=== PATIENT | female | born 1940 | race Caucasian/White ===

== ENCOUNTER 2017-09-30 00:25 | Inpatient (IN) | payer OTHER ==
[~2017-09-30] VITALS: Ht 157.5 cm; Wt 98.0 kg
[~2017-09-30 00:25] MED LIST: ASPIRIN81 M4 PO; CIPRO500 M1 PO; COUMADIN5 M2 PO; DILAUDID2 M1 PO; GLIMEPIRIDE4 M1 PO; HUMIRA PEN40 MG/0.8 SC; LEVOTHYROXINE88 MCG PO; LISINOPRIL20 M1 PO; METFORMIN HCL500 M3 PO; METHOTREXATE2.5 M2 PO; METOPROLOL SUC100 M2 PO; MIRALAX119 GM PO; SENNA PLUS TAB1 EACH PO; SIMVASTATIN TAB 40M PO; TRAMADOL HCL50 M1 PO
--- NOTE | 2017-09-30 01:19 | ED GENERAL ADULT ---
See Addendum History of Present Illness General Chief Complaint: General Adult Stated Complaint: "COUPLE OF DAYS DONT FEEL WELL" Source: patient, family Exam Limitations: no limitations Vital Signs & Intake/Output Vital Signs & Intake/Output Vital Signs Date Time Temp Pulse Resp B/P B/P Pulse O2 O2 Flow FiO2 Mean Ox Delivery Rate 09/30 1050 99.6 91 18 98/56 98 Room Air 09/30 0900 101.3 09/30 0838 101.3 09/30 0824 101.0 116 18 142/65 100 Room Air 09/30 0302 96.7 98 18 122/67 98 Room Air 09/30 0242 100.7 09/30 0151 101.1 09/30 0049 101.1 96 20 138/76 95 Room Air Allergies Coded Allergies: codeine (HIVES, RASH 02/21/16) Triage Note: 77YO FEMALE TO TRIAGE W/CO N,V, X 1 WEEK. STATES SHE "FELL TONITE BECAUSE SHE FELT WEAK" Triage Nurses Notes Reviewed? yes Onset: Abrupt Duration: day(s): (2) Timing: multiple episodes today Injury Environment: home Severity: mild, moderate No Modifying Factors: none HPI: This is a 77-year-old female who presents to the ER with a family member for chief complaint of weakness, fall, fever. She has not been feeling well since . Should multiple episodes of emesis today. Tonight she was trying to get out of her wheelchair to use the bathroom felt unsteady and fell down and hurt her bottom. She also complains of right upper quadrant abdominal pain. No diarrhea. (Tara ARAUJO,Mitzi) Reconcile Medications Aspirin (Aspirin*) 81 MG TAB.CHEW 1 TAB PO DAILY HEART HEALTH (Reported) Reason to Stop at ADM: HOLDING BECAUSE SHE WILL GO FOR SURGERY Glimepiride 4 MG TABLET 1 TAB PO DAILY DM (Reported) Reason to Stop at ADM: ON NPO ISS Levothyroxine Sodium 88 MCG TABLET 1 TAB PO DAILY THYROID (Reported) Lisinopril 20 MG TABLET 1 TAB PO DAILY HTN (Reported) Metformin HCl 500 MG TABLET 1 TAB PO BID DM (Reported) Reason to Stop at ADM: ON NPO ISS Methotrexate 2.5 MG TABLET 6 TAB PO QW ARTHRITIS (Reported) Metoprolol Succinate 100 MG TAB.ER.24H 1 TAB PO DAILY HTN (Reported) last taken on 02/20/16 Polyethylene Glycol 3350 (Miralax) 119 GM POWDER 17 GM PO DAILY BOWEL REGIMENT Sennosides/Docusate Sodium (Senna Plus Tablet) 1 EACH TABLET 1 TAB PO DAILY PRN CONSTIPATION [SIMVASTATIN TAB 40M] 40 MG PO DAILY CHOL (Reported) (Jeromy Castro MD) Past History Travel History Traveled to [place] past 21 day No Medical History Any Pertinent Medical History? see below for history Neurological: NONE EENT: RIGHT EAR AKUTAN Cardiovascular: AFIB, HTN, CHOL Respiratory: NONE Gastrointestinal: irritable bowel syndrome Hepatic: NONE Renal: NONE Musculoskeletal: psoariatic arthritis, DISSOLVED THORACIC DISKS Psychiatric: NONE Endocrine: diabetes, THYROID NIDDM Cancer(s): R HIP/BONE MYELOMA History of MRSA: No History of VRE: No History of CDIFF: No Pneumonia Vaccine: 02/01/11 Surgical History Surgical History: N Psychosocial History Who do you live with Patient/Self Services at Home None What is your primary language Telugu Tobacco Use: Quit >30 days ago Family History Family History, If Any: BROTHER (melanoma with possible bone mets). FATHER (colon cancer). Hx Contributory? No (Mitzi Pacheco MD) Review of Systems Review of Systems Constitutional: Reports: chills, malaise, weakness. Denies: fever. EENTM: Reports: no symptoms. Respiratory: Reports: short of breath. Denies: cough, sputum production. Cardiovascular: Denies: chest pain, palpitations. GI: Reports: abdominal pain, diarrhea, melena, vomiting. Genitourinary: Denies: discharge, dysuria, frequency. Musculoskeletal: Denies: back pain. Skin: Reports: no symptoms. Neurological/Psychological: Reports: no symptoms. Hematologic/Endocrine: Reports: polyuria. Denies: bruising, bleeding, polydipsia. Immunologic/Allergic: Reports: no symptoms. All Other Systems: Reviewed and Negative (Mitzi Pacheco MD) Physical Exam Physical Exam General Appearance: well developed/nourished, alert, awake, anxious, mild distress, moderate distress Head: atraumatic, normal appearance Eyes: Bilateral: normal appearance, PERRL, EOMI. Ears, Nose, Throat: normal pharynx, hearing grossly normal Neck: normal inspection, supple, full range of motion Respiratory: normal breath sounds, chest non-tender, no respiratory distress Cardiovascular: regular rate/rhythm, normal peripheral pulses Peripheral Pulses: 2+ radial (R), 2+ radial (L) Gastrointestinal: normal bowel sounds, soft, tenderness (RUQ) Extremities: normal inspection, normal capillary refill, normal range of motion, no edema Neurologic/Psych: no motor/sensory deficits, awake, alert, oriented x 3 Skin: intact, normal color, warm/dry Core Measures ACS in differential dx? No CVA/TIA Diagnosis: No Sepsis Present: No Sepsis Focused Exam Completed? No (Tara ARAUJO,Mitzi) Progress Differential Diagnoses I considered the following diagnoses in my evaluation of the patient: [ CHOLECYSTITIS, INFLUENZA, UTI, PYELO, PNEUMONIA, SEPSIS, CLAUDIA, DEHYDRATION] Plan of Care: Orders Procedure Date/time Status Clear Liquid Diet 09/30 D Active Consistent Carbohydrate 1 09/30 B Complete Patient Data 09/30 1038 Active OXYGEN SETUP (GEN) 09/30 0835 Active Saline Lock 09/30 0835 Active Admit to inpatient 09/30 0835 Active Vital Signs 09/30 0835 Active Activity/Ambulation 09/30 0835 Active Code Status 09/30 0835 Active LACTIC ACID 09/30 0420 Complete MISTAKE 09/30 0133 Active Telemetry/Soil Chemist 09/30 0133 Active CULTURE,URINE 09/30 0120 Active BLOOD CULTURE 09/30 0120 Active URINALYSIS 09/30 0120 Complete TROPONIN LEVEL 09/30 0120 Complete PARTIAL THROMBOPLASTIN TIME 09/30 0120 Complete PROTHROMBIN TIME 09/30 0120 Complete LIPASE 09/30 0120 Complete LACTIC ACID 09/30 0120 Complete COMPREHENSIVE METABOLIC PANEL 09/30 0120 Complete CBC WITHOUT DIFFERENTIAL 09/30 0120 Complete EKG 09/30 0120 Active Intake & Output 09/30 0102 Active RAPID VIRAL INFLUENZA A 09/30 0052 Complete Laboratory Tests 09/30/17 0420: Lactic Acid 1.6 09/30/17 0415: Urine Color YEL, Urine Clarity CLEAR, Urine pH 6.0, Ur Specific [place] 1.010, Urine Protein 30 H, Urine Ketones NEG, Urine Nitrite NEG, Urine Bilirubin NEG, Urine Urobilinogen 0.2, Ur Leukocyte Esterase TRACE H, Ur Microscopic SEDIMENT EXAMINED, Urine RBC 10-15 H, Urine WBC 25-50 H, Ur Epithelial Cells FEW, Urine Bacteria PACKD H, Granular Casts 1-3 H, Urine Hemoglobin TRACE-INTACT, Urine Glucose NEG 09/30/17 0130: Anion Gap 18 H, Estimated GFR 37 L, BUN/Creatinine Ratio 12.1, Glucose 187 H, Lactic Acid 2.4 H, Calcium 9.4, Total Bilirubin 1.1, AST 31, ALT 27, Alkaline Phosphatase 75, Troponin I 0.02, Total Protein 7.2, Albumin 3.8, Globulin 3.4, Albumin/Globulin Ratio 1.1, Lipase 96, PT 13.6 H, INR 1.30 H, APTT 28, CBC w Diff MAN DIFF ORDERED, RBC 3.76 L, MCV 91.0, MCH 30.1, MCHC 33.1, RDW 16.8 H, MPV 8.5, Gran % 87.9 H, Lymphocytes % 6.7 L, Monocytes % 4.9, Eosinophils % 0.1, Basophils % 0.4, Absolute Granulocytes 6.1, Segmented Neutrophils 74, Band Neutrophils 11 H, Absolute Lymphocytes 0.5 L, Lymphocytes 8 L, Monocytes 4, Absolute Monocytes 0.3, Absolute Eosinophils 0, Basophils 3 H, Absolute Basophils 0, Platelet Estimate ADEQUATE, Polychromasia 1+, Poikilocytosis 1+, Anisocytosis 1+, Ovalocytes 1+ Microbiology 09/30 0415 URINE ROUT: Urine Culture - RECD 09/30 014 BLOOD: Blood Culture - RECD 09/30 013 BLOOD: Blood Culture - RECD 09/30 005 NASOPHARYN: Influenza Virus A & B Rapid Smear - COMP Diagnostic Imaging: Viewed by Me: Radiology Read, CT Scan. Discussed w/RAD: Radiology Read, CT Scan. Radiology Impression: PATIENT: FRANCINE GOMEZ PRESENT AGE: 77 PATIENT ACCOUNT NO: [id number] : 42 LOCATION: [facility] ORDERING PHYSICIAN: Mitzi Pacheco MD SERVICE DATE: 09/30/17 EXAM TYPE: CAT - CT ABD & PELVIS W/O IV CONTRAS EXAMINATION: CT ABDOMEN AND PELVIS WITHOUT CONTRAST CLINICAL INFORMATION: Right upper quadrant pain, fever, vomiting. COMPARISON: Ultrasound from 06/12/2017. TECHNIQUE: Multidetector volumetric imaging was performed from the superior aspect of the liver through the pubic symphysis. Sagittal and coronal reformatted images were obtained on the technologist's workstation. DLP: 1157 mGy-cm FINDINGS: A portion of the right abdomen is not included on this study due to the patient's size and [id number] of the examination. LUNG BASES: There is a 0.4 cm right middle lobe pulmonary nodule, series 2 image 6. The visualized cardiac structures are unremarkable. LIVER, GALLBLADDER, AND BILIARY TREE: The visualized liver is normal in size, shape, and attenuation. No focal hepatic lesion or biliary ductal dilatation is present. The gallbladder is unremarkable with no evidence of radiopaque gallstones, gallbladder wall thickening, or obvious pericholecystic inflammatory changes. PANCREAS: Unremarkable. SPLEEN: Unremarkable. ADRENAL GLANDS: Unremarkable. KIDNEYS AND URETERS: The kidneys are normal in size, shape, and attenuation. No hydronephrosis, hydroureter, or calculi seen. Mild symmetric perinephric stranding. BLADDER: Unremarkable. GASTROINTESTINAL TRACT: The stomach is decompressed, grossly unremarkable. The small bowel is normal in caliber without obstruction. Normal appendix. No colonic wall thickening or inflammatory changes are seen. Mild colonic stool burden. No free air or free fluid. ABDOMINAL WALL: No significant hernia is appreciated. The right abdominal wall is not fully included on this study. LYMPH NODES: Normal. VASCULAR: Normal caliber aorta with mild atherosclerotic calcifications. PELVIC VISCERA: The uterus and adnexa are unremarkable. OSSEOUS STRUCTURES: No acute or suspicious osseous abnormality. Multilevel degenerative changes of the spine. These are most significant at the L3-L4 level with disc space narrowing, vacuum disc phenomenon, and prominent endplate sclerosis with osteophyte formation. Hardware seen in the proximal right femur. Sclerosis noted at the superior portion of the right femoral head is nonspecific but could be associated with avascular necrosis. IMPRESSION: 1. No acute finding of the abdomen or pelvis. Unremarkable appearance of the gallbladder. Normal appendix. 2. 0.4 cm right middle lobe pulmonary nodule. If this is a high-risk patient, 12 month follow-up chest CT could be considered. DICTATED BY: Naga Fitch MD DATE/TIME DICTATED:09/30/17303 VETERINARY TECHNICIAN ASSISTANT:MICHEL DATE/TIME TRANSCRIBED:303 CONFIDENTIAL, DO NOT COPY WITHOUT APPROPRIATE AUTHORIZATION. < Electronically signed in Other Vendor System> SIGNED BY: Naga Fitch MD 09/30/17311 CXR Impression: PATIENT: FRANCINE GOMEZ PRESENT AGE: 77 PATIENT ACCOUNT NO: [id number] : 42 LOCATION: [facility] ORDERING PHYSICIAN: Mitzi Pacheco MD SERVICE DATE: 09/30/17 EXAM TYPE: RAD - XRY-PORTABLE CHEST XRAY EXAMINATION: XR PORTABLE CHEST CLINICAL INFORMATION: Fever and abdominal pain COMPARISON: 02/21/2016 TECHNIQUE: Portable frontal view of the chest was obtained. FINDINGS: Lung volumes are low. The patient is rotated to the right. No dense consolidation, edema, or effusion. No pneumothorax. The cardiomediastinal silhouette is grossly unchanged. No acute osseous abnormality. IMPRESSION: Hypoexpanded lungs with no focal consolidation. DICTATED BY: Naga Fitch MD DATE/TIME DICTATED:09/30/17526 VETERINARY TECHNICIAN ASSISTANT: MICHEL DATE/TIME TRANSCRIBED:09/30/17526 CONFIDENTIAL, DO NOT COPY WITHOUT APPROPRIATE AUTHORIZATION. <Electronically signed in Other Vendor System> SIGNED BY: Naga Fitch MD 09/30/17530 Initial ED EKG: AFIB, ST depression (V1-V2) Hand-Off Endorsed To: Jeromy Castro MD Endorsed Time: 715 Pending: other (TOLERATING PO, AMBULATION) (Mitzi Pacheco MD) Comments: Patient collapsed in department attempting to reach for bucket to vomit in. She did not sustain any injury. (Jeromy Castro MD) Departure Departure Disposition: STILL A PATIENT Condition: Stable Referrals: [facility] Roberth ARAUJO (PCP/Family) Departure Forms: Customer Survey General Discharge Information (Mitzi Pacheco MD) Departure Clinical Impression Primary Impression: Sepsis secondary to UTI Secondary Impressions: Abdominal pain, Fever Admission Note Spoke With: Kayla Mccormick MD Documentation of Exam: Documentation of any treatments & extenuating circumstances including Concerns Regarding Discharge (functional status, medication knowledge or non-compliance, living conditions, etc.) that warrant an admission rather than observation: IV fluids IV antiemetics serial lab exam medication adjustment continuing care discharge planning (Jeromy Castro MD) Critical Care Note Critical Care Note Critical Care Time: non-applicable (Mitzi Pacheco MD) Critical Care Note Critical Care Time: 30-74 min (40) (Jeromy Castro MD)
[2017-09-30 02:00] LABS: ABSOLUTE BASOPHIL COUNT 0 /CUMM (0.0-0.2); ABSOLUTE EOSINOPHIL COUNT 0 /CUMM (0.0-0.7); ABSOLUTE GRANULOCYTE CT 6.1 /CUMM (1.4-6.5); ABSOLUTE LYMPH COUNT 0.5 /CUMM (1.2-3.4); ABSOLUTE MONOCYTE COUNT 0.3 /CUMM (0.10-0.60); BASOPHIL % 0.4 % (0.0-2.0); EOSINOPHIL % 0.1 % (0-5); GRANULOCYTE % 87.9 % (42.2-75.2); HEMATOCRIT 34.2 % (37-47); MEAN CORPUSCULAR HGB 30.1 PG (27.0-31.0); MEAN CORPUSCULAR HGB CONC 33.1 G/DL (33.0-37.0); MEAN PLATELET VOLUME 8.5 FL (7.4-10.4); PLATELET COUNT 171 /CUMM (130-400); RBC DISTRIBUTION WIDTH 16.8 % (11.5-14.5); RED BLOOD CELL CT 3.76 /CUMM (4.20-5.40); WHITE BLOOD CELL COUNT 6.9 /CUMM (4.8-10.8)
[2017-09-30 02:05] LABS: PT 13.6 SEC (9.4-12.5); PTT 28 SEC (25-37)
--- NOTE | 2017-09-30 03:12 | CT SCAN REPORT ---
EXAMINATION: CT ABDOMEN AND PELVIS WITHOUT CONTRAST CLINICAL INFORMATION: Right upper quadrant pain, fever, vomiting. COMPARISON: Ultrasound from 06/12/2017. TECHNIQUE: Multidetector volumetric imaging was performed from the superior aspect of the liver through the pubic symphysis. Sagittal and coronal reformatted images were obtained on the technologist's workstation. DLP: 1157 mGy-cm FINDINGS: A portion of the right abdomen is not included on this study due to the patient's size and [id number] of the examination. LUNG BASES: There is a 0.4 cm right middle lobe pulmonary nodule, series 2 image 6. The visualized cardiac structures are unremarkable. LIVER, GALLBLADDER, AND BILIARY TREE: The visualized liver is normal in size, shape, and attenuation. No focal hepatic lesion or biliary ductal dilatation is present. The gallbladder is unremarkable with no evidence of radiopaque gallstones, gallbladder wall thickening, or obvious pericholecystic inflammatory changes. PANCREAS: Unremarkable. SPLEEN: Unremarkable. ADRENAL GLANDS: Unremarkable. KIDNEYS AND URETERS: The kidneys are normal in size, shape, and attenuation. No hydronephrosis, hydroureter, or calculi seen. Mild symmetric perinephric stranding. BLADDER: Unremarkable. GASTROINTESTINAL TRACT: The stomach is decompressed, grossly unremarkable. The small bowel is normal in caliber without obstruction. Normal appendix. No colonic wall thickening or inflammatory changes are seen. Mild colonic stool burden. No free air or free fluid. ABDOMINAL WALL: No significant hernia is appreciated. The right abdominal wall is not fully included on this study. LYMPH NODES: Normal. VASCULAR: Normal caliber aorta with mild atherosclerotic calcifications. PELVIC VISCERA: The uterus and adnexa are unremarkable. OSSEOUS STRUCTURES: No acute or suspicious osseous abnormality. Multilevel degenerative changes of the spine. These are most significant at the L3-L4 level with disc space narrowing, vacuum disc phenomenon, and prominent endplate sclerosis with osteophyte formation. Hardware seen in the proximal right femur. Sclerosis noted at the superior portion of the right femoral head is nonspecific but could be associated with avascular necrosis. IMPRESSION: 1. No acute finding of the abdomen or pelvis. Unremarkable appearance of the gallbladder. Normal appendix. 2. 0.4 cm right middle lobe pulmonary nodule. If this is a high-risk patient, 12 month follow-up chest CT could be considered.
--- NOTE | 2017-09-30 05:31 | RADIOLOGY REPORT ---
EXAMINATION: XR PORTABLE CHEST CLINICAL INFORMATION: Fever and abdominal pain COMPARISON: 02/21/2016 TECHNIQUE: Portable frontal view of the chest was obtained. FINDINGS: Lung volumes are low. The patient is rotated to the right. No dense consolidation, edema, or effusion. No pneumothorax. The cardiomediastinal silhouette is grossly unchanged. No acute osseous abnormality. IMPRESSION: Hypoexpanded lungs with no focal consolidation.
--- NOTE | 2017-09-30 11:56 | History & Physical ---
Hamilton Sesaykylee 09/30/17 1156: General Information and HPI MD Statement: I have seen and personally examined FRANCINE GOMEZ and documented this H&P. The patient is a 77 year old F who presented with a patient stated chief complaint of [weakness, vomiting, nausea]. Source of Information: patient, old records Exam Limitations: no limitations History of Present Illness: This is a 77-year-old female with past medical history of atrial fibrillation, hypertension, hypercholesterolemia, irritable bowel syndrome, psoriatic arthritis on methotrexate, diabetes mellitus (hek-[id number]-[id number] diabetes mellitus), hypothyroidism, smoldering myeloma came in with chief complaint of not feeling well since 5 days prior to admission. Apparently,the patient was doing fine when 5 days prior to today's presentation on , she felt like she was not herself and vomited everything that she had eaten, after that she was not able to tolerate anything by mouth, continued to throw up if she ate anything, lost her appetite, continued to feel weak and nauseous. Today morning, she was trying to picker feeder something from the ground when she felt very weak and had to take support on the ground in order to balance herself. Similar episode happened while in the ER. She denied any loss of consciousness, palpitations, dizziness and reinforced that every time she felt like sitting on the ground is because of weakness. She does recall that her urinary frequency has reduced relatively in last few days. She denied any headache, diarrhea or constipation, palpitations, chest pain, abdominal pain. However, she said that she did have some subjective fevers. She hasn't had much of an appetite for last 5 days and hasn't eaten much. Allergies/Medications Allergies: Coded Allergies: codeine (HIVES, RASH 02/21/16) Home Med list Aspirin (Aspirin*) 81 MG TAB.CHEW 1 TAB PO DAILY HEART HEALTH (Reported) Reason to Stop at ADM: HOLDING BECAUSE SHE WILL GO FOR SURGERY Glimepiride 4 MG TABLET 1 TAB PO DAILY DM (Reported) Reason to Stop at ADM: ON NPO ISS Levothyroxine Sodium 88 MCG TABLET 1 TAB PO DAILY THYROID (Reported) Lisinopril 20 MG TABLET 1 TAB PO DAILY HTN (Reported) Metformin HCl 500 MG TABLET 1 TAB PO BID DM (Reported) Reason to Stop at ADM: ON NPO ISS Methotrexate 2.5 MG TABLET 6 TAB PO QW ARTHRITIS (Reported) Metoprolol Succinate 100 MG TAB.ER.24H 1 TAB PO DAILY HTN (Reported) last taken on 02/20/16 Polyethylene Glycol 3350 (Miralax) 119 GM POWDER 17 GM PO DAILY BOWEL REGIMENT Sennosides/Docusate Sodium (Senna Plus Tablet) 1 EACH TABLET 1 TAB PO DAILY PRN CONSTIPATION [SIMVASTATIN TAB 40M] 40 MG PO DAILY CHOL (Reported) Compliance With Home Meds: FAIR Past History Travel History Traveled to [place] past 21 day No Medical History Neurological: NONE EENT: RIGHT EAR [place] Cardiovascular: AFIB, HTN, CHOL Respiratory: NONE Gastrointestinal: irritable bowel syndrome Hepatic: NONE Renal: NONE Musculoskeletal: psoariatic arthritis, DISSOLVED THORACIC DISKS Psychiatric: NONE Endocrine: diabetes, THYROID NIDDM Cancer(s): R HIP/BONE MYELOMA History of MRSA: No History of VRE: No History of CDIFF: No Pneumonia Vaccine: 02/01/11 Surgical History Surgical History: N Past Family/Social History Family History Relations & Conditions if any BROTHER (melanoma with possible bone mets). FATHER (colon cancer). Psychosocial History Where do you live? Home Who Do You Live With? nephew Services at Home: None Smoking Status: Never Smoked ETOH Use: occasional use Illicit Drug Use: denies illicit drug use Functional Ability ADLs Independent: dressing, eating, toileting, bathing. Ambulation: cane Review of Systems Review of Systems Constitutional: Reports: fever, malaise, weakness. Denies: chills, diaphoresis. EENTM: Denies: blurred vision, double vision, visual changes, eye pain. Cardiovascular: Denies: chest pain, edema, orthopena, palpitations. Respiratory: Denies: cough, hemoptysis, orthopnea, short of breath, sputum production. GI: Denies: abdominal pain, bloating, constipation, diarrhea. Genitourinary: Reports: frequency. Denies: discharge, dysuria, hematuria, hesitation, nocturia , pain. Musculoskeletal: Reports: joint pain, joint swelling. Denies: back pain, gout, muscle pain, muscle stiffness. Skin: Reports: no symptoms. Neurological/Psychological: Reports: no symptoms. Hematologic/Endocrine: Reports: no symptoms. Exam & Diagnostic Data Last 24 Hrs of Vital Signs/I&O Vital Signs Date Time Temp Pulse Resp B/P B/P Pulse O2 O2 Flow FiO2 Mean Ox Delivery Rate 09/30 1443 98.3 88 22 103/52 09/30 1439 98.3 88 22 103/52 97 Room Air 09/30 1050 99.6 91 18 98/56 98 Room Air 09/30 0900 101.3 09/30 0838 101.3 09/30 0824 101.0 116 18 142/65 100 Room Air 09/30 0302 96.7 98 18 122/67 98 Room Air 09/30 0242 100.7 09/30 0151 101.1 09/30 0049 101.1 96 20 138/76 95 Room Air Intake & Output 09/30 1600 09/30 0800 09/30 0000 Intake Total 3000 Output Total Balance 3000 Intake, IV 3000 Patient 97.976 kg 97.976 kg Weight Physical Exam General Appearance Alert, Oriented X3, Cooperative, No Acute Distress Skin No Rashes, No Breakdown, No Significant Lesion HEENT Atraumatic, PERRLA, EOMI Neck Supple, No JVD, No thryomegaly Cardiovascular Normal S1, Normal S2, irregularly irregular Lungs Clear to Auscultation, Normal Air Movement Abdomen Normal Bowel Sounds, Soft, No Tenderness Neurological Strength at 5/5 X4 Ext, Normal Tone, Sensation Intact Extremities No Clubbing, No Cyanosis, No Edema, Normal Pulses Vascular Normal Pulses Last 24 Hrs of Labs/Noam: Laboratory Tests 09/30/17 0420: Lactic Acid 1.6 09/30/17 0415: Urine Color YEL, Urine Clarity CLEAR, Urine pH 6.0, Ur Specific [place] 1.010, Urine Protein 30 H, Urine Ketones NEG, Urine Nitrite NEG, Urine Bilirubin NEG, Urine Urobilinogen 0.2, Ur Leukocyte Esterase TRACE H, Ur Microscopic SEDIMENT EXAMINED, Urine RBC 10-15 H, Urine WBC 25-50 H, Ur Epithelial Cells FEW, Urine Bacteria PACKD H, Granular Casts 1-3 H, Urine Hemoglobin TRACE-INTACT, Urine Glucose NEG 09/30/17 0130: Anion Gap 18 H, Estimated GFR 37 L, BUN/Creatinine Ratio 12.1, Glucose 187 H, Lactic Acid 2.4 H, Calcium 9.4, Total Bilirubin 1.1, AST 31, ALT 27, Alkaline Phosphatase 75, Troponin I 0.02, Total Protein 7.2, Albumin 3.8, Globulin 3.4, Albumin/Globulin Ratio 1.1, Lipase 96, TSH 1.240, Free T4 1.52, PT 13.6 H, INR 1.30 H, APTT 28, CBC w Diff MAN DIFF ORDERED, RBC 3.76 L, MCV 91.0, MCH 30.1, MCHC 33.1, RDW 16.8 H, MPV 8.5, Gran % 87.9 H, Lymphocytes % 6.7 L, Monocytes % 4.9, Eosinophils % 0.1, Basophils % 0.4, Absolute Granulocytes 6.1, Segmented Neutrophils 74, Band Neutrophils 11 H, Absolute Lymphocytes 0.5 L, Lymphocytes 8 L, Monocytes 4, Absolute Monocytes 0.3, Absolute Eosinophils 0, Basophils 3 H, Absolute Basophils 0, Platelet Estimate ADEQUATE, Polychromasia 1+, Poikilocytosis 1+, Anisocytosis 1+, Ovalocytes 1+ Microbiology 09/30 1359 URINE ROUT: Urine Culture - CAN Cancelled: Cancelled via OE: Error 09/30 1359 BLOOD: Blood Culture - ORD 09/30 1359 BLOOD: Blood Culture - ORD 09/30 0415 URINE ROUT: Urine Culture - RECD 09/30 0143 BLOOD: Blood Culture - RECD 09/30 0130 BLOOD: Blood Culture - RECD 09/30 0053 NASOPHARYN: Influenza Virus A & B Rapid Smear - COMP Diagnostic Data EKG Results Irregularly irregular, possible atrial flutter as P waves are seen clearly, rate of 106, QRS of 116, QTC of 473, incomplete right bundle branch block and left anterior fascicular block which is present on the previous EKG CXR Results hypoexpanded lungs with no focal consolidation Other Results SERVICE DATE: 09/30/17 EXAM TYPE: CAT - CT ABD & PELVIS W/O IV CONTRAS CT abdominal and pelvis did not show any acute abdominal or pelvic findings, unremarkable gallbladder, 0.4 cm right middle lobe pulmonary nodule, needs follow-up in 12 months Assessment/Plan Assessment: In summary this is a 77-year-old female with past medical history of chronic atrial fibrillation (on aspirin for anticoagulation), hypertension( on lisinopril and metoprolol), hypercholesterolemia( on statin), irritable bowel syndrome, psoriatic arthritis on methotrexate, diabetes mellitus (non-insulin- dependent diabetes mellitus), hypothyroidism, smoldering myeloma came in with chief complain of not feeling well since 5 days prior to admission. She came in with chief complain of weakness, fall and fever with continued episodes of emesis and not being able to keep anything inside, loss of appetite, decrease frequency of urination, generalized weakness, and forwarded secondary to the weakness since last 5 days. At baseline, she lives with her nephew who lives on the first floor, she does not drive however she does her own activities of daily living, uses public transit, shops for herself, walks with a cane walker and has also has a wheelchair, she cooks for herself, and gets help from nephew for things here and there. On admission she had a MAXIMUM TEMPERATURE of 101.3, tachycardia with average heart rate ranging from 96 upto 116, left pressure of 98/56, respiratory rate o 18-22, she was 98% saturating on room air. white Count of 6.9, H/H of 11.3/34.2, MCV of 91.0, platelet of 171, 11 bands. Sodium of 136, potassium of 4.3, chloride of 97, anion gap of 18, BUN/creatinine 17/1.4, glucose of 187 minus lactic acid was elevated at 2.4 however subsequent lactic acid came down to 1.6, liver function tests within normal limits, calcium of 9.4. Bone and was found to be negative at 0.020, lipase was 96 TSH was 1.24 and free T4 venous 1.52, the normal limit. Urine analysis was found to be clear, however trace leukocyte esterase, 25-50 RBCs, few epithelial cells and 1-3 granular casts were found him a urine protein was found to be 30. Urine cultures and blood cultures were sent. Chest x-ray did not show any acute consolidation, abdominal and pelvis CT not showing any acute abdominal findings, a 0.4 cm right middle lobe pulmonary nodule was found which needs to be followed up in a year from now. In the ER she received 2 L of normal saline bolus, she received Zofran, Tylenol, one dose of IV ceftriaxone. We will admit the patient to general medicine floor for the treatment of following problems. Sepsis secondary to urinary tract infection. * Continue to monitor vitals every shift, continue to monitor intake and output, continue to follow urine culture, patient received 1 dose of IV ceftriaxone, continue IV ceftriaxone to treat urinary tract infection for now. * Chest x-ray was found to be normal and her initial complain of right upper quadrant pain and le lead us to perform a CT abdominal and pelvis which also did not show any acute findings, liver function tests are within normal limit. * Initial lactic acid was elevated, however after receiving normal saline, her subsequent lactic acid came down, her sepsis seems to be most likely secondary to urinary tract infection as the UA was found to be positive with white blood cells. * Continue IV antibiotics, continue to follow urine culture, adjust antibiotics as needed. Nausea/vomiting/anorexia * Zofran when necessary ordered for nausea/vomiting. * Start her on full liquid diet for now as she has not been tolerating by mouth diet well, advance the diet as tolerated. * If she requires more than couple of doses of Zofran pleasecheck EKG to monitor QTC. History of [id number] diabetes mellitus * At home patient is on metformin and glimepiride at home which we will hold while inpatient. * Continue to monitor fingerstick. * Continue low-dose NovoLog sliding scale * Adjust the sliding scale depending on the fingerstick values. * Continue consistent carbohydrate diet, full liquid diet ordered for now as the patient is unable to tolerate by mouth diet, advance as tolerated. * As outpatient patient follows Dr. mireles as his diabetes doctor. History of hypothyroidism * Ms chacon presented in atrial flutter, therefore thyroid values very checked which were found to be within normal limits. * Continue levothyroxine at home dosage. History of chronic atrial fibrillation * Patient has known atrial fibrillation for many years now, follows up with Dr. Abarca as his planning rn, patient isn't hypertensive, diabetic, ages 77 however patient was not placed on chronic anticoagulation even though the Chadsvasc seems to be high, however she is maintained on 81 mg of aspirin * IF Need be this can be clarified with his planning rn * As she was hypotensive on presentation which could be secondary to her sepsis, we will hold metoprolol and lisinopril for now, restart as needed and the blood pressure allows. History of hypertension * On Presentation, she was found to be hypotensive. * Hold all antihypertensive medications for now * continue to monitor blood pressure * Restart as the blood pressure allows. History of psoriatic athritis * follows with DR michael as OP. * will hold methotraxate for now. Full code. Consistent carbohydrate diet. DVT prophylaxis with heparin. As Ranked By This Provider Problem List: 1. UTI (urinary tract infection) 2. Renal failure 3. Psoriatic arthritis 4. Diabetes 5. Sepsis secondary to UTI Core Measures/Misc (05/20) Acute Coronary Syndrome ACS Diagnosis: No Congestive Heart Failure Congestive Heart Failure Diagnosis No Cerebrovascular Accident CVA/TIA Diagnosis: No VTE (View Protocol) VTE Risk Factors Acute Medical Illness No Mechanical VTE Prophylaxis d/t Other No VTE Pharm Prophylaxis d/t Other Sepsis (View protocol) Sepsis Present: Yes Resident Review Statement Resident Statement: admitted by resident Kayla Mccormick 09/30/17 1808: Attending MD Review Statement Attending Statement Attending MD Statement: examined this patient, discuss w/resident/PA/ONLINE PRODUCER, agreed w/resident/PA/ONLINE PRODUCER, reviewed EMR data (avail) Attending Assessment/Plan: 77-yr F with PMH of Afib, HTN , HLD, irritable bowel syndrome, psoriatic arthritis on methotrexate( was on Humira in past which was stopped when she was diagnosed with Smoldering MM), diabetes mellitus , hypothyroidism, 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 On baseline pt has limited mobility due to her rt leg fracture and walks few steps with walker and also uses wheelchair. On admission she was found to have fever in ER with tachycardia, bandemia, lactic acidosis and postive UA. Pt is being admitted for sepsis secondary to UTI- cont on ceftriaxone, f/u on blood and urine cultures and will cont with iv fluids. d/w pt the care plan.
[2017-10-01 06:00] VITALS: BP 99/53
--- NOTE | 2017-10-01 07:29 | PN- Housestaff ---
Charlie ARAUJO,Shaina 10/01/17 0729: Subjective Follow-up For: uti diabetes afib? nausea and vomiting fall increased troponins Subjective: patient seen this morning. notes that she is having episodes of dizziness while laying stationary in bed. also notes a dry cough that started this morning. denies n/v. her increased urination that she was having at home has now decreased even though on fluids. notes so RUQ pain on palpation. Review of Systems Constitutional: Reports: malaise, weakness. EENTM: Reports: no symptoms. Cardiovascular: Reports: no symptoms. Respiratory: Reports: no symptoms, cough. Gastrointestinal: Reports: abdominal pain. Musculoskeletal: Reports: no symptoms. Neurological/Psychological: Reports: weakness, other (dizziness). Objective Last 24 Hrs of Vital Signs/I&O Vital Signs Date Time Temp Pulse Resp B/P B/P Pulse O2 O2 Flow FiO2 Mean Ox Delivery Rate 10/01 1600 98 Room Air 10/01 1600 97.9 74 18 104/46 98 Room Air 10/01 1400 97 Room Air 10/01 1400 98.4 78 16 132/66 97 Room Air 10/01 0943 97.7 74 20 116/52 98 Room Air 10/01 0600 96.2 70 18 99/53 100 Room Air Intake & Output 10/01 1600 10/01 0800 10/01 0000 Intake Total 1400 800 Output Total 500 350 Balance 900 450 Intake, IV 800 800 Intake, Oral 600 Number 1 Bowel Movements Output, Urine 500 350 Physical Exam General Appearance: Alert, Oriented X3, Cooperative, No Acute Distress Skin: No Rashes, No Breakdown HEENT: Atraumatic, PERRLA Neck: Supple, No JVD Cardiovascular: Regular Rate, Normal S1, Normal S2, No Murmurs Lungs: Clear to Auscultation, Normal Air Movement Abdomen: Normal Bowel Sounds, Soft, No Hepatospenomegaly, No Masses Neurological: Normal Speech Extremities: No Clubbing, No Cyanosis, No Edema, Normal Pulses, No Tenderness/ Swelling Current Medications: Current Medications Sig/Kenny Start time Last Medication Dose Route Stop Time Status Admin Acetaminophen 650 MG Q6P PRN 10/01 1730 AC PO Aspirin 81 MG DAILY 10/01 1000 AC 10/01 PO 1307 Atorvastatin Calcium 20 MG 1700 09/30 1700 AC 09/30 PO 1714 Ceftriaxone Sodium 0 .STK-MED ONE 10/01 0602 DC .ROUTE Ceftriaxone Sodium 1,000 MG Q24H 10/01 0600 AC 10/01 IV 0610 Heparin Sodium 0 .STK-MED ONE 10/01 0603 DC (Porcine) .ROUTE Heparin Sodium 0 .STK-MED ONE 09/30 2218 DC (Porcine) .ROUTE Heparin Sodium 5,000 UNIT Q8 09/30 1400 AC 10/01 (Porcine) SC 1310 Insulin Aspart 0 TIDAC 09/30 1700 AC 10/01 SC 0833 Levothyroxine Sodium 0.088 MG DAILY 09/30 1214 AC 10/01 PO 1307 Nystatin 1 ODALIS BID 10/01 1158 AC 10/01 TOP 1307 Ondansetron HCl 4 MG Q6P PRN 09/30 1345 AC 09/30 IV 1315 Sodium Chloride 1,000 ML Q13H 10/01 1130 AC 10/01 IV 1426 Sodium Chloride 1,000 ML .Q10H 09/30 1215 DC 10/01 IV 10/01 0814 0124 Last 24 Hrs of Lab/Noam Results Last 24 Hrs of Labs/Mics: Laboratory Tests 10/01/17 1800: Troponin I Cancelled 10/01/17 1314: Troponin I 0.14 *H 10/01/17 0550: Anion Gap 14, Estimated GFR 31 L, BUN/Creatinine Ratio 15.6, Troponin I 0.19 *H , CBC w Diff MAN DIFF ORDERED, RBC 3.19 L, MCV 93.3, MCH 30.3, MCHC 32.5 L, RDW 17.7 H, MPV 9.5, Gran % 89.5 H, Lymphocytes % 5.9 L, Monocytes % 4.3, Eosinophils % 0.1, Basophils % 0.2, Absolute Granulocytes 11.7 H, Segmented Neutrophils 74, Band Neutrophils 19 H, Absolute Lymphocytes 0.8 L, Lymphocytes 4 L, Monocytes 3, Absolute Monocytes 0.6, Absolute Eosinophils 0, Absolute Basophils 0, Anisocytosis 1+ Assessment/Plan Assessment: 77-year-old female with past medical history of atrial fibrillation, hypertension, hypercholesterolemia, irritable bowel syndrome, psoriatic arthritis on methotrexate, diabetes mellitus (rmc-masfotm-gezbbcrlu diabetes mellitus), hypothyroidism, myeloma came in with chief complaint of weakness, nausea, vomiting for the last 5 days with urinary frequency and RUQ pain. she was found to have evidence of pyelonephritis on CT. EVENT: She was being treated with IV ceftriaxone on account of a urinary tract infection with urine culture growing gram negative rods. However this morning she woke up and felt dizzy in bed, similar to how she felt yesterday. She then noticed 5/10 intensity left shoulder discomfort that was pressure-like and lasted for about 1 minute when she was lying on her left side. The left shoulder discomfort was relieved by changing her position to her right side and she denied associated palpitations, shortness of breath diaphoresis or nausea. At the time of left shoulder discomfort she also noticed increased dry coughing. An EKG showed no new ST changes however serum troponin added to the morning labs showed an elevation to 0.19 compared to baseline and admission which was 0.02. She is being transferred to the ICU for telemetry monitoring. 1. Sepsis secondary to urinary tract infection: PATIENT DENIES EVER HAVING DYSURIA, HAD URINARY FREQUENCY THAT HAS NOW DECREASED. patient is afebrile. patient has ckd, cr is 1.4 this admission. * Continue to monitor vitals every shift, continue to monitor intake and output, continue to follow urine culture, patient received 1 dose of IV ceftriaxone, continue IV ceftriaxone to treat urinary tract infection for now. * CT scan done for her initial complaint of right upper quadrant pain did not show any acute findings, liver function tests are within normal limit. * Initial lactic acid was elevated, however after receiving normal saline, her subsequent lactic acid came down, her sepsis seems to be most likely secondary to urinary tract infection as the UA was found to be positive with white blood cells and urine cultures showing gram-negative rods * Continue IV antibiotics with IV ceftriaxone for now * Continue IV normal saline at 100 mL an hour and monitor blood pressure closely 2. Transient left chest/left shoulder discomfort with positive troponin * This elevated troponin of 0.19 happened in the setting of tachycardia/ hypotension from sepsis a in a patient with CKD and reduced creatinine clearance * Cardiology consult was called and patient Viral Jameson MD advised not to start anticoagulation at this time * Troponins trended down to 0.14 * Will order echocardiogram * Monitor on telemetry 3. Nausea/vomiting/anorexia * Zofran when necessary ordered for nausea/vomiting. * Start her on full liquid diet for now as she has not been tolerating by mouth diet well, advance the diet as tolerated. * If she requires more than couple of doses of Zofran pleasecheck EKG to monitor QTC. 4. History of jhw-oaeycla-tznfpmnpv diabetes mellitus * At home patient is on metformin and glimepiride at home which we will hold while inpatient. * Continue to monitor fingerstick. * Continue low-dose NovoLog sliding scale * Adjust the sliding scale depending on the fingerstick values. * Continue consistent carbohydrate diet, full liquid diet ordered for now as the patient is unable to tolerate by mouth diet, advance as tolerated. * As outpatient patient follows Dr. mireles as his diabetes doctor. 5. History of hypothyroidism * Thyroid values very checked which were found to be within normal limits. * Continue levothyroxine at home dosage. 6. History of chronic atrial fibrillation * Patient has known atrial fibrillation for many years now, follows up with Dr. Abarca as his director informatics, patient isn't hypertensive, diabetic, ages 77 however patient was not placed on chronic anticoagulation even though the CHADSVASC seems to be high, however she is maintained on 81 mg of aspirin * As per discussion with Dr. Ruiz's group, the patient refused anticoagulation * As she was hypotensive on presentation which could be secondary to her sepsis, we will hold metoprolol and lisinopril for now, restart as needed and the blood pressure allows. 7. History of hypertension * On Presentation, she was found to be hypotensive. * Hold all antihypertensive medications for now * continue to monitor blood pressure * Restart as the blood pressure allows. 8. History of psoriatic athritis * follows with DR michael as OP. * will hold methotraxate for now 9. HLD patient is on simvastatin outpatient and requests this medication but we do not carry it so we are giving her atorvastatin. of note patient notes that she feels sick to her stomach on atorvastatin. we will try it and stop if need be. DVT prophylaxis with ALPS patient is full code Problem List: 1. Elevated troponin 2. Sepsis secondary to UTI 3. Abdominal pain 4. Fever 5. Diabetes Pain Ratin Pain Location: ruq Pain Goal: Pain 4 or less Pain Plan: prn Tomorrow's Labs & Rationales: cbc bep CharlySandip 10/01/17 1541: Attending Review Statement Attending Statement Attending MD Statement: examined this patient, discuss w/resident/PA/TRAIN EXAMINER, agreed w/resident/PA/TRAIN EXAMINER, discussed with family, reviewed EMR data (avail), discussed with nursing, discussed with case mgmt, reviewed images, amended to note Attending Assessment/Plan: 77-yr F with PMH of Afib, HTN , HLD, irritable bowel syndrome, psoriatic arthritis on methotrexate( was on Humira in past which was stopped when she was diagnosed with Smoldering MM), diabetes mellitus , hypothyroidism, 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 On baseline pt has limited mobility due to her rt leg fracture and walks few steps with walker and also uses wheelchair. On admission she was found to have fever in ER with tachycardia, bandemia, lactic acidosis and postive UA. Patient admitted for sepsis secondary to UTI- cont on ceftriaxone, f/u on blood and urine cultures and will cont with iv fluids. Patient seen/examined bedside. She denies chest pain, shortness of breath. Patient was hypotensiove overnight with elevation of cardiac enzymes trop 0.19. Patient transferred to telemetry monitoring for elevated troponin neris 2/2 demand ischemia from sepsi rule out ACS. Cardiology notified. See event note from resident. d/w pt the care plan.
[2017-10-01 08:31] LABS: ABSOLUTE BASOPHIL COUNT 0 /CUMM (0.0-0.2); ABSOLUTE EOSINOPHIL COUNT 0 /CUMM (0.0-0.7); ABSOLUTE GRANULOCYTE CT 11.7 /CUMM (1.4-6.5); ABSOLUTE LYMPH COUNT 0.8 /CUMM (1.2-3.4); ABSOLUTE MONOCYTE COUNT 0.6 /CUMM (0.10-0.60); BASOPHIL % 0.2 % (0.0-2.0); EOSINOPHIL % 0.1 % (0-5); GRANULOCYTE % 89.5 % (42.2-75.2); HEMATOCRIT 29.7 % (37-47); MEAN CORPUSCULAR HGB 30.3 PG (27.0-31.0); MEAN CORPUSCULAR HGB CONC 32.5 G/DL (33.0-37.0); MEAN CORPUSCULAR VOLUME 93.3 FL (81.0-99.0); MEAN PLATELET VOLUME 9.5 FL (7.4-10.4); PLATELET COUNT 120 /CUMM (130-400); RBC DISTRIBUTION WIDTH 17.7 % (11.5-14.5); RED BLOOD CELL CT 3.19 /CUMM (4.20-5.40)
[2017-10-01 09:43] VITALS: BP 116/52
[2017-10-01 09:55] LABS: WHITE BLOOD CELL COUNT 13.1 /CUMM (4.8-10.8)
--- NOTE | 2017-10-01 13:10 | Event Note ---
Event Note Event Note: SITUATION Positive troponins in the setting of CLAUDIA, sepsis without any acute EKG changes Brief Patient is a 77 YO F with PMH significant for DM, HTN, HLD, smoldering myeloma, psoriatic arthritis NIDDM presented with weakness, nausea, vomiting for the last 5days. VS at admission are consistent with being afebrile, mild tachycardia, BP 130/70 --> 98/56 transiently, on room air Physical exam is significant for right CVA tenderness. heart S1,S2 normal, chest - clear to auscultation. no edema on lower extrmeities. admitted to general medicine floor for sepsis secondary to UTI, started on IV ceftriaxone. Overnight she had mild hypotension of 90/50 and she feels dizzy in the am. Upon further enquiring she reproted chest heaviness more lying on left side. Intial EKG did show normal P wave, HR 100, wide QRS with LAFB, irregularly irregular RR interval, no ST T wave changes. Repeat this morning shows - normal P wave, NSR, HR 70, wide QRS with LAFB, no EKG changes. Troponin today morning is 0.19. Assessment Patient is a 77 YO F with PMH of HTN, DM, HLD, psoriatic arthritis on methotrexate, IBS presented to sepsis secondary to UTI. Now found to have elevated troponin of 0.19 in the setting of tachycardia/hypotension from sepsis and elevating creatinine. I am concerned about a brief period of paroxysmal A.fib in this patient with high CHADVasc score. After discussing with - apparently patient refused anticoagulation. (patient couldnt recall this later when I asked her) Plan Transfer to telemetry serial EKG and troponin to rule out ACS vs demand ECHO to rule out wallmotion abnormalities. No role of anticoagulation for now.
[2017-10-01 14:00] VITALS: BP 132/66
[2017-10-01 16:00] VITALS: BP 104/46
--- NOTE | 2017-10-01 17:28 | Acceptance Note - Resident/Int ---
Subjective Background: 77-year-old female with past medical history of atrial fibrillation, hypertension, hypercholesterolemia, irritable bowel syndrome, psoriatic arthritis on methotrexate, diabetes mellitus (lsp-txcpeuo-tageobxyv diabetes mellitus), hypothyroidism, smoldering myeloma came in with chief complaint of weakness, nausea, vomiting for the last 5days. She was being treated with IV ceftriaxone on account of a urinary tract infection with urine culture growing gram negative rods. However this morning she woke up and felt dizzy in bed, similar to how she felt yesterday. She then noticed 5/10 intensity left shoulder discomfort that was pressure-like and lasted for about 1 minute when she was lying on her left side. The left shoulder discomfort was relieved by changing her position to her right side and she denied associated palpitations, shortness of breath diaphoresis or nausea. At the time of left shoulder discomfort she also noticed increased dry coughing. Overnight her blood pressures had been borderline hypotensive with 90/50 mmHg recorded and she received 2 L of IV normal saline boluses. At the time of her dizziness complaints her blood pressure was 116/52 mmHg. Stat troponin was added to this a.m. labs and came back elevated at 0.19 (was 0.02 at admission). Repeat EKG this morning shows - normal P wave, NSR, HR 70, wide QRS with LAFB, no ST changes compared to prior EKG. He was then transferred to the telemetry floor for close monitoring, but on account of lack of beds she was brought to the ICU. Vital signs at the time of transfer showed temperature of 90 7.7F, pulse of 74 bpm, respiratory rate of 20, blood pressure of 116/52 mmHg, pulse oximetry of 98 % on room air. She denied chest pain or dizziness at the time of transfer. Living Situation: home self care Review of Systems Constitutional: Denies: chills, fever. EENTM: Denies: blurred vision, nasal congestion. Cardiovascular: Reports: chest pain. Denies: edema, palpitations, syncope. Respiratory: Reports: cough. Denies: short of breath, wheezing. Gastrointestinal: Denies: abdominal pain, diarrhea, nausea, vomiting. Genitourinary: Denies: dysuria, frequency, hematuria. Objective Last 24 Hrs of Vital Signs/I&O Vital Signs Date Time Temp Pulse Resp B/P B/P Pulse O2 O2 Flow FiO2 Mean Ox Delivery Rate 10/01 1400 98.4 78 16 132/66 97 Room Air 10/01 0943 97.7 74 20 116/52 98 Room Air 10/01 0600 96.2 70 18 99/53 100 Room Air 09/30 1904 97.1 79 16 95/50 99 Room Air 09/30 1717 97.9 84 18 101/54 100 Room Air Intake & Output 10/01 1600 10/01 0800 10/01 0000 Intake Total 1400 800 Output Total 500 350 Balance 900 450 Intake, IV 800 800 Intake, Oral 600 Number 1 Bowel Movements Output, Urine 500 350 Physical Exam General Appearance: Alert, Oriented X3, No Acute Distress Skin: No Rashes Skin Temp/Moisture Exam: Warm/Dry Sepsis Skin Exam (color): Normal for Ethnicity HEENT: Atraumatic, PERRLA, EOMI, Mucous Membr. moist/pink Neck: Supple, No JVD, No thryomegaly, +2 Carotid Pulse wo Bruit Lymphatic: Cervical nl Cardiovascular: Regular Rate, Normal S1, Normal S2, No Murmurs Lungs: Clear to Auscultation, Normal Air Movement Abdomen: Normal Bowel Sounds, Soft, No Hepatospenomegaly, Vague tenderness in right lower quadrant Neurological: Normal Speech, Normal Tone, Cranial Nerves 3-12 NL Extremities: No Edema, Normal Pulses Sepsis Peripheral Pulse Location: Dorsalis Pedis Sepsis Peripheral Pulse Exam: Normal Current Medications: Current Medications Sig/Kenny Start time Last Medication Dose Route Stop Time Status Admin Aspirin 81 MG DAILY 10/01 1000 AC 10/01 PO 1307 Atorvastatin Calcium 20 MG 1700 09/30 1700 AC 09/30 PO 1714 Ceftriaxone Sodium 0 .STK-MED ONE 10/01 0602 DC .ROUTE Ceftriaxone Sodium 1,000 MG Q24H 10/01 0600 AC 10/01 IV 0610 Heparin Sodium 0 .STK-MED ONE 10/01 0603 DC (Porcine) .ROUTE Heparin Sodium 0 .STK-MED ONE 09/30 2218 DC (Porcine) .ROUTE Heparin Sodium 5,000 UNIT Q8 09/30 1400 AC 10/01 (Porcine) SC 1310 Insulin Aspart 0 TIDAC 09/30 1700 AC 10/01 SC 0833 Levothyroxine Sodium 0.088 MG DAILY 09/30 1214 AC 10/01 PO 1307 Nystatin 1 ODALIS BID 10/01 1158 AC 10/01 TOP 1307 Ondansetron HCl 4 MG Q6P PRN 09/30 1345 AC 09/30 IV 1315 Sodium Chloride 1,000 ML Q13H 10/01 1130 AC 10/01 IV 1426 Sodium Chloride 1,000 ML .Q10H 09/30 1215 DC 10/01 IV 10/01 0814 0124 Assessment/Plan Assessment: 77-year-old female with past medical history of atrial fibrillation, hypertension, hypercholesterolemia, irritable bowel syndrome, psoriatic arthritis on methotrexate, diabetes mellitus (wav-wjwpkiq-mozcspnol diabetes mellitus), hypothyroidism, smoldering myeloma came in with chief complaint of weakness, nausea, vomiting for the last 5 days. She was being treated with IV ceftriaxone on account of a urinary tract infection with urine culture growing gram negative rods. However this morning she woke up and felt dizzy in bed, similar to how she felt yesterday. She then noticed 5/10 intensity left shoulder discomfort that was pressure-like and lasted for about 1 minute when she was lying on her left side. The left shoulder discomfort was relieved by changing her position to her right side and she denied associated palpitations, shortness of breath diaphoresis or nausea. At the time of left shoulder discomfort she also noticed increased dry coughing. An EKG showed no new ST changes however serum troponin added to the morning labs showed an elevation to 0.19 compared to baseline and admission which was 0.02. She is being transferred to the ICU for telemetry monitoring. 1. Sepsis secondary to urinary tract infection * Continue to monitor vitals every shift, continue to monitor intake and output, continue to follow urine culture, patient received 1 dose of IV ceftriaxone, continue IV ceftriaxone to treat urinary tract infection for now. * CT scan done for her initial complaint of right upper quadrant pain did not show any acute findings, liver function tests are within normal limit. * Initial lactic acid was elevated, however after receiving normal saline, her subsequent lactic acid came down, her sepsis seems to be most likely secondary to urinary tract infection as the UA was found to be positive with white blood cells and urine cultures showing gram-negative rods * Continue IV antibiotics with IV ceftriaxone for now * Continue IV normal saline at 75 mL an hour and monitor blood pressure closely 2. Transient left chest/left shoulder discomfort with positive troponin * This elevated troponin of 0.19 happened in the setting of tachycardia/ hypotension from sepsis a in a patient with CKD and reduced creatinine clearance * Cardiology consult was called and patient Viral Jameson MD advised not to start anticoagulation at this time * Troponins trended down to 0.14 * Will order echocardiogram * Monitor on telemetry 3. Nausea/vomiting/anorexia * Zofran when necessary ordered for nausea/vomiting. * Start her on full liquid diet for now as she has not been tolerating by mouth diet well, advance the diet as tolerated. * If she requires more than couple of doses of Zofran pleasecheck EKG to monitor QTC. 4. History of nqo-jdlbjox-cnvcazpzy diabetes mellitus * At home patient is on metformin and glimepiride at home which we will hold while inpatient. * Continue to monitor fingerstick. * Continue low-dose NovoLog sliding scale * Adjust the sliding scale depending on the fingerstick values. * Continue consistent carbohydrate diet, full liquid diet ordered for now as the patient is unable to tolerate by mouth diet, advance as tolerated. * As outpatient patient follows Dr. mireles as his diabetes doctor. 5. History of hypothyroidism * Thyroid values very checked which were found to be within normal limits. * Continue levothyroxine at home dosage. 6. History of chronic atrial fibrillation * Patient has known atrial fibrillation for many years now, follows up with Dr. Abarca as his operations research manager, patient isn't hypertensive, diabetic, ages 77 however patient was not placed on chronic anticoagulation even though the Chadsvasc seems to be high, however she is maintained on 81 mg of aspirin * As per discussion with Dr. Ruiz's group, the patient refused anticoagulation * As she was hypotensive on presentation which could be secondary to her sepsis, we will hold metoprolol and lisinopril for now, restart as needed and the blood pressure allows. 7. History of hypertension * On Presentation, she was found to be hypotensive. * Hold all antihypertensive medications for now * continue to monitor blood pressure * Restart as the blood pressure allows. 8. History of psoriatic athritis * follows with DR michael as OP. * will hold methotraxate for now DVT prophylaxis with ALPS patient is full code Problem List: 1. Sepsis secondary to UTI 2. Abdominal pain 3. Renal failure 4. Diarrhea 5. Elevated troponin Pain Ratin Pain Location: Abdomen Pain Goal: Pain 4 or less Pain Plan: Tylenol PRN for pain, morphine for severe pain Tomorrow's Labs & Rationales: CBC-sepsis, BEP for CLAUDIA DVT/Prophylaxis: mechanical
[2017-10-01 19:20] VITALS: BP 132/78
--- NOTE | 2017-10-01 19:48 | ECHOCARDIOGRAM REPORT ---
FRANCINE GOMEZ Age: 77 : 1940 Gender: F Exam Date: 10/01/2017 14:57 Exam Location: [facility] Ht (in): 62 Wt (lb): 216 BSA: 2.12 BP: 116 / 52 Ordering Physician: Lisa Weinberg MD Referring Physician: Viral Jameson M.D. Technologist: Gilda Gibbons RDCS Room Number: 110 Indications: LV FUNCTION AFTER ACS Rhythm: Sinus Technical Quality: Fair FINDINGS Left Ventricle Normal size left ventricle. Left ventricular wall thickness mildly increased. Normal left ventricular ejection fraction estimated at 60-65%. Right Ventricle Normal right ventricular size and function. Right Atrium Normal right atrial size. Left Atrium Left atrial size at the upper limits of normal. Mitral Valve Mild mitral annular calcification. Trace to mild mitral regurgitation. Aortic Valve Diffuse thickening of the aortic valve cusps with reduced excursion. Mild aortic stenosis. Tricuspid Valve Tricuspid valve is normal in structure and function. Mild tricuspid regurgitation. Right ventricular systolic pressure estimated to be elevated at 40 mmHg. Pulmonic Valve Pulmonic valve not well visualized, grossly normal. Pericardium Minimal pericardial effusion (normal variant). Great Vessels Normal size aortic root and proximal ascending aorta. CONCLUSIONS Normal left ventricular systolic function with mild LVH. Mild Aortic stenosis. Mild Pulmonary hypertension. Pierre Damon M.D. (Electronically Signed) Final Date: 01 October 2017 19:48 MEASUREMENTS (Male / Female) Normal Values 2D ECHO LV Diastolic Diameter PLAX 3.7 cm 4.2 - 5.9 / 3.9 - 5.3 cm LV Systolic Diameter PLAX 2.2 cm 2.1 - 4.0 cm LV Fractional Shortening PLAX 40.5 % 25 - 46 % LV Ejection Fraction 2D Teich 72.1 % IVS Diastolic Thickness 1.2 cm LVPW Diastolic Thickness 1.2 cm LV Relative Wall Thickness 0.6 RV Internal Dim ED PLAX 2.7 cm 1.9 - 3.8 cm LVOT Diameter 1.9 cm Aortic Root Diameter 2.4 cm LA Systolic Diameter LX 3.5 cm 3.0 - 4.0 / 2.7 - 3.8 cm LA Volume 43.0 cm 18 - 58 / 22 - 52 cm Ascending Aorta Diameter 3.1 cm DOPPLER AV Peak Velocity 232.0 cm/s AV Peak Gradient 21.5 mmHg AV Mean Velocity 179.0 cm/s AV Mean Gradient 14.0 mmHg AV Velocity Time Integral 52.4 cm LVOT Peak Velocity 119.0 cm/s LVOT Peak Gradient 5.7 mmHg LVOT Mean Velocity 89.9 cm/s LVOT Mean Gradient 4.0 mmHg LVOT Velocity Time Integral 29.6 cm LVOT Stroke Volume 83.9 cm AV Area Cont Eq vti 1.6 cm AV Area Cont Eq pk 1.5 cm MV Peak Velocity 118.0 cm/s MV Peak Gradient 5.6 mmHg MV Mean Velocity 73.1 cm/s MV Mean Gradient 3.0 mmHg Mitral E Point Velocity 89.5 cm/s Mitral A Point Velocity 99.3 cm/s Mitral E to A Ratio 0.9 MV PHT Velocity 122.0 cm/s MV Deceleration Greene 461.0 cm/s MV Pressure Half Time 79.4 ms MV Area PHT 2.8 cm MV Deceleration Time 320.0 ms TR Peak Velocity 281.0 cm/s TR Peak Gradient 31.6 mmHg Right Atrial Pressure 5.0 mmHg Pulmonary Artery Systolic Pressu 36.6 mmHg Right Ventricular Systolic Press 36.6 mmHg PV Peak Velocity 131.0 cm/s PV Peak Gradient 6.9 mmHg PV Mean Velocity 77.0 cm/s PV Mean Gradient 3.0 mmHg PV Velocity Time Integral 27.0 cm LV E' Lateral Velocity 7.6 cm/s Mitral E to LV E' Lateral Ratio 11.8 LV E' Septal Velocity 5.5 cm/s Mitral E to LV E' Septal Ratio 16.4
[2017-10-01 22:46] VITALS: BP 140/84
--- NOTE | 2017-10-02 00:30 | RADIOLOGY REPORT ---
EXAMINATION: XR PORTABLE CHEST CLINICAL INFORMATION: Palpitations and chest/back pain. COMPARISON: 09/30/2017 TECHNIQUE: Portable frontal view of the chest was obtained. FINDINGS: Cardiac leads overlie the chest. Low lung volumes. No consolidation, edema, or effusion. No pneumothorax. The cardiomediastinal silhouette is unchanged. No acute osseous abnormality. IMPRESSION: Low lung volumes. No acute pulmonary finding.
--- NOTE | 2017-10-02 03:23 | Event Note ---
Event Note Event Note: Patient Complaining of Back Pain "Bubbles going up her Back" which later moved to her upper back only between the shoulder blades. No chest Pain, Palpitations or SOB. Vitals Stable with Blood Pressure equal in both arms. Normal S1,S2, Lungs CTA. Trop and EKG remained negative and CXR did not show any acute Pathology. Patient was given Omeprazole 20mg once on patient's request as she thinks it could be indigestion. Does not want any Pain medications.
[2017-10-02 04:43] LABS: ABSOLUTE BASOPHIL COUNT 0 /CUMM (0.0-0.2); ABSOLUTE EOSINOPHIL COUNT 0.1 /CUMM (0.0-0.7); ABSOLUTE GRANULOCYTE CT 8.1 /CUMM (1.4-6.5); ABSOLUTE LYMPH COUNT 1.6 /CUMM (1.2-3.4); ABSOLUTE MONOCYTE COUNT 0.4 /CUMM (0.10-0.60); BASOPHIL % 0.3 % (0.0-2.0); EOSINOPHIL % 1.1 % (0-5); GRANULOCYTE % 79.5 % (42.2-75.2); HEMATOCRIT 32.5 % (37-47); MEAN CORPUSCULAR HGB 30.1 PG (27.0-31.0); MEAN CORPUSCULAR HGB CONC 32.4 G/DL (33.0-37.0); MEAN CORPUSCULAR VOLUME 92.8 FL (81.0-99.0); MEAN PLATELET VOLUME 9.3 FL (7.4-10.4); PLATELET COUNT 140 /CUMM (130-400); RBC DISTRIBUTION WIDTH 17.6 % (11.5-14.5); WHITE BLOOD CELL COUNT 10.2 /CUMM (4.8-10.8)
[2017-10-02 06:33] VITALS: BP 142/66
--- NOTE | 2017-10-02 07:39 | Event Note ---
Event Note Event Note: 735-patient complained of standby 10 crushing chest pain radiating to the back, not relieved by rest. Patient had similar kind of pain at around 3:30 AM. No acute EKG changes and troponin then. On examination patient consciousness in mild distress, alert oriented 3. CVS-S1-S2, RS-normal vesicular breath sounds. Abdomen-mild right upper quadrant tenderness. Vitals stable Stat EKG and troponin sent. Patient was given nitroglycerin 0.4 mg tablet and Maalox. Update-patient said pain got relieved with nitroglycerin and MiraLAX. No acute EKG changes. Sinus rhythm with right bundle branch block.
--- NOTE | 2017-10-02 08:45 | PN- Housestaff ---
See Addendum Subjective Follow-up For: Sepsis of urologic origin, chest pain evaluation, weakness Complaints: chest pain Tele-Events Since Last Visit: Overnight patient has been on sinus rhythm, but is complaining of chest pain twice, and two EKGs were done as well which did not show any new changes. Subjective: I saw the patient and examined her today. She was having chest pain centrally located radiating to her back between her shoulder blades, 8/10, glyburide once he has been having again today. After administration of nitroglycerin she still had the same pain, which later decreased in intensity to 3/10 after getting a dose of Maalox. Of note, she had similar chest pain in the middle of the night as well, in troponin EKGs were sent. Review of Systems Constitutional: Reports: see HPI. Cardiovascular: Reports: chest pain. Objective Last 24 Hrs of Vital Signs/I&O Vital Signs Date Time Temp Pulse Resp B/P B/P Pulse O2 O2 Flow FiO2 Mean Ox Delivery Rate 10/02 0633 98.8 78 12 142/66 97 Room Air 10/01 2246 98.8 74 20 140/84 97 10/01 1920 98.4 80 18 132/78 98 Room Air 10/01 1600 98 Room Air 10/01 1600 97.9 74 18 104/46 98 Room Air 10/01 1400 97 Room Air 10/01 1400 98.4 78 16 132/66 97 Room Air 10/01 0943 97.7 74 20 116/52 98 Room Air Intake & Output 10/02 1600 10/02 0800 10/02 0000 Intake Total 700 30 Output Total 600 Balance 100 30 Intake, IV 220 Intake, Oral 480 30 Output, Urine 600 Physical Exam General Appearance: Alert, Oriented X3, Cooperative, No Acute Distress, Mild Distress (chest pain), obesity Other Physical Findings: Head: Normocephalic, atraumatic Throat/mouth: Moist mucosa Neck: Supple, full range of motion Heart: Regular rate, regular rhythm Lung: Normal breath sound bilaterally [Added sound not heard] Extremities: Normal knee exam bilaterally, no pedal edema noted, Distal neurovascular intact Neurologic: Alert, oriented x3, Cranial exam grossly intact, Speech is clear and coherent Skin: Warm and dry Psychiatric: Calm, cooperative, coherant Current Medications: Current Medications Sig/Kenny Start time Last Medication Dose Route Stop Time Status Admin Acetaminophen 650 MG Q6P PRN 10/01 1730 AC PO Aspirin 81 MG DAILY 10/01 1000 AC 10/01 PO 1307 Atorvastatin Calcium 20 MG 1700 09/30 1700 AC 09/30 PO 1714 Ceftriaxone Sodium 1,000 MG Q24H 10/01 0600 AC 10/02 IV 0536 Heparin Sodium 5,000 UNIT Q8 09/30 1400 AC 10/02 (Porcine) SC 0536 Insulin Aspart 0 TIDAC 09/30 1700 AC 10/01 SC 0833 Levothyroxine Sodium 0.088 MG DAILY 09/30 1214 AC 10/01 PO 1307 Lidocaine 1 PAT DAILY 10/02 1000 UNVr EXT Magnesium Chloride 64 MG BID 10/01 2329 CAN PO 10/03 1001 Magnesium Sulfate 1 GM Q2H 10/01 2330 DC 10/02 Dextrose/Water 100 ML IV 10/02 0329 0116 Nystatin 1 ODALIS BID 10/01 1158 AC 10/01 TOP 2219 Omeprazole 20 MG ONCE ONE 10/02 0330 DC 10/02 PO 10/02 0331 0335 Ondansetron HCl 4 MG Q6P PRN 09/30 1345 DC 09/30 IV 1315 Promethazine HCl 25 MG Q6 PRN 10/02 0745 AC IV 10/09 0744 Sodium Chloride 1,000 ML Q13H 10/01 1130 DC 10/01 IV 1426 Last 24 Hrs of Lab/Noam Results Last 24 Hrs of Labs/Mics: Laboratory Tests 10/02/17 0745: Troponin I Pending 10/02/17 0410: Phosphorus 2.7, Magnesium 2.0, Troponin I 0.12 *H 10/02/17 0410: Anion Gap 15, Estimated GFR 31 L, BUN/Creatinine Ratio 16.9, CBC w Diff NO MAN DIFF REQ, RBC 3.50 L, MCV 92.8, MCH 30.1, MCHC 32.4 L, RDW 17.6 H, MPV 9.3, Gran % 79.5 H, Lymphocytes % 15.3 L, Monocytes % 3.8, Eosinophils % 1.1, Basophils % 0.3, Absolute Granulocytes 8.1 H, Absolute Lymphocytes 1.6, Absolute Monocytes 0.4, Absolute Eosinophils 0.1, Absolute Basophils 0 10/01/17 1800: Troponin I Cancelled 10/01/17 1314: Troponin I 0.14 *H Assessment/Plan Assessment: 77-year-old female with past medical history of atrial fibrillation, hypertension, hypercholesterolemia, irritable bowel syndrome, psoriatic arthritis on methotrexate, diabetes mellitus (kxs-ozbmrrd-phemkbury diabetes mellitus), hypothyroidism, myeloma came in with chief complaint of weakness, nausea, vomiting for 5 days with urinary frequency and RUQ pain. She was found to have sepsis of urologic origin and was initially admitted in the general medical floor. After complaining of chest pains and increased troponin levels, she was transferred initially to ICU as tele hold and later to the telemetry. She is currently being managed in telemetry floor for the following issues: #Sepsis of urologic origin Patient initially presented with 102F fever, tachycardia, urinary symptoms, and a CAT scan showing bilateral perinephric stranding, and UA showing pyuria. Urine culture started growing gram-negative rods and she was started on IV ceftriaxone, currently continued. Culture results: Escherichia coli, sensitive to cefazolin, Augmentin, Cipro, gentamicin, nitrofurantoin. We'll continue IV antibiotics for now, and switched to by mouth antibiotics before her discharge. #Chest pain evaluation Patient described severe chest pain earlier this morning 8/10 centrally located radiating to the back between her shoulder blades, which she has been having since her admission, a repeat troponin EKG was slightly elevated. This probably represents type II NV, but given her elevated troponin and chest pain, she needs an outpatient ischemic workup according to cardiology. Cartilage defects appreciated. We'll resume her home blood pressure medications. Of note, she seems to have had history of atrial fibrillation and had denied anti-coagulation according to the medical records dated 10/01/2017. #Nausea Since her QTC was prolonged, Zofran was discontinued, will provide any other antiemetics when necessary. #Diabetes mellitus Continue on NovoLog sliding scale, diabetic diet, Accu-Cheks 3 times a day/ before meals and at bedtime. #Will continue her home medications for hypothyroidism, hypertension. Of note, MTX was held since admission. Will continue after her discharge. #We'll hold her atorvastatin has C does not tolerate it and we do not carry any other statin in-house. #Diet: Diabetic diet, consistent carbohydrate 2. #DVT prophylaxis with ALPS #Code status: Full code Problem List: 1. Sepsis secondary to UTI 2. Elevated troponin Pain Ratin (chest pain) Pain Location: chest Pain Goal: Pain 4 or less Pain Plan: nitro, maalox, acetaminophen Tomorrow's Labs & Rationales: BEP for Na levels (was 149) today, cr- 1.6 * Zofran when necessary ordered for nausea/vomiting. * Start her on full liquid diet for now as she has not been tolerating by mouth diet well, advance the diet as tolerated. * If she requires more than couple of doses of Zofran pleasecheck EKG to monitor QTC. 4. History of miz-bvcxzpa-ayludfybz diabetes mellitus * At home patient is on metformin and glimepiride at home which we will hold while inpatient. * Continue to monitor fingerstick. * Continue low-dose NovoLog sliding scale * Adjust the sliding scale depending on the fingerstick values. * Continue consistent carbohydrate diet, full liquid diet ordered for now as the patient is unable to tolerate by mouth diet, advance as tolerated. * As outpatient patient follows Dr. mireles as his diabetes doctor. 5. History of hypothyroidism * Thyroid values very checked which were found to be within normal limits. * Continue levothyroxine at home dosage. 6. History of chronic atrial fibrillation * Patient has known atrial fibrillation for many years now, follows up with Dr. Abarca as his custom shoemaker, patient isn't hypertensive, diabetic, ages 77 however patient was not placed on chronic anticoagulation even though the CHADSVASC seems to be high, however she is maintained on 81 mg of aspirin * As per discussion with Dr. Ruiz's group, the patient refused anticoagulation * As she was hypotensive on presentation which could be secondary to her sepsis, we will hold metoprolol and lisinopril for now, restart as needed and the blood pressure allows. 7. History of hypertension * On Presentation, she was found to be hypotensive. * Hold all antihypertensive medications for now * continue to monitor blood pressure * Restart as the blood pressure allows. 8. History of psoriatic athritis * follows with DR michael as OP. * will hold methotraxate for now 9. HLD patient is on simvastatin outpatient and requests this medication but we do not carry it so we are giving her atorvastatin. of note patient notes that she feels sick to her stomach on atorvastatin. we will try it and stop if need be. DVT prophylaxis with ALPS patient is full code
--- NOTE | 2017-10-02 11:08 | Cons- Cardiology ---
General Information and HPI Consulting Request Date of Consult: 10/02/17 Requested By: Kayla Mccormick MD Reason for Consult: Elevated troponin Source of Information: patient, old records Exam Limitations: no limitations History of Present Illness: Patient is a 77-year-old female known to me but has not been seen in the office in 2 years with a history of hypertension, MUGUS, mild aortic stenosis, hyperlipidemia, who now presents with increasing weakness and loss of appetite for the past 5 days. She states that her symptoms progressively worsened. On the day of admission she felt weak and nauseous. She vomited once and gradually slipped off of her bed onto the floor. There was no loss of consciousness. She denied chest pain shortness of breath or palpitations at that time. She states that she did not note any fever at home but normally only sleeps with a light she in the winter. She noted herself to be very cold requiring multiple blankets to stay warm. The patient came to the emergency evaluation where she was found to be febrile with a urinary tract infection. The cardiac standpoint last evening she developed episode severe sharp chest pain radiating to her back and her shoulders. EKG demonstrated no acute changes and her symptoms were improved with a combination of Mylanta and Lidoderm patch. Her troponins were minimally elevated up to 0.19 and have gradually been trending down. Allergies/Medications Allergies: Coded Allergies: codeine (HIVES, RASH 02/21/16) Home Med List: Aspirin (Aspirin*) 81 MG TAB.CHEW 1 TAB PO DAILY HEART HEALTH (Reported) Reason to Stop at ADM: HOLDING BECAUSE SHE WILL GO FOR SURGERY Glimepiride 4 MG TABLET 1 TAB PO DAILY DM (Reported) Reason to Stop at ADM: ON NPO ISS Levothyroxine Sodium 88 MCG TABLET 1 TAB PO DAILY THYROID (Reported) Lisinopril 20 MG TABLET 1 TAB PO DAILY HTN (Reported) Metformin HCl 500 MG TABLET 1 TAB PO BID DM (Reported) Reason to Stop at ADM: ON NPO ISS Methotrexate 2.5 MG TABLET 6 TAB PO QW ARTHRITIS (Reported) Metoprolol Succinate 100 MG TAB.ER.24H 1 TAB PO DAILY HTN (Reported) last taken on 02/20/16 Polyethylene Glycol 3350 (Miralax) 119 GM POWDER 17 GM PO DAILY BOWEL REGIMENT Sennosides/Docusate Sodium (Senna Plus Tablet) 1 EACH TABLET 1 TAB PO DAILY PRN CONSTIPATION [SIMVASTATIN TAB 40M] 40 MG PO DAILY CHOL (Reported) Current Medications: Current Medications Sig/Kenny Start time Last Medication Dose Route Stop Time Status Admin Acetaminophen 650 MG Q6P PRN 10/01 1730 AC PO Aspirin 81 MG DAILY 10/01 1000 AC 10/02 PO 0941 Atorvastatin Calcium 20 MG 1700 09/30 1700 AC 09/30 PO 1714 Ceftriaxone Sodium 1,000 MG Q24H 10/01 0600 AC 10/02 IV 0536 Heparin Sodium 5,000 UNIT Q8 09/30 1400 AC 10/02 (Porcine) SC 0536 Insulin Aspart 0 TIDAC 09/30 1700 AC 10/01 SC 0833 Levothyroxine Sodium 0.088 MG 0600 10/03 0600 AC PO Levothyroxine Sodium 0.088 MG DAILY 09/30 1214 DC 10/02 PO 0941 Lidocaine 1 PAT DAILY 10/02 1000 AC 10/02 EXT 0940 Magnesium Chloride 64 MG BID 10/01 2329 CAN PO 10/03 1001 Magnesium Sulfate 1 GM Q2H 10/01 2330 DC 10/02 Dextrose/Water 100 ML IV 10/02 0329 0116 Nystatin 1 ODALIS BID 10/01 1158 AC 10/02 TOP 0942 Omeprazole 20 MG ONCE ONE 10/02 0330 DC 10/02 PO 10/02 0331 0335 Ondansetron HCl 4 MG Q6P PRN 09/30 1345 DC 09/30 IV 1315 Promethazine HCl 25 MG Q6 PRN 10/02 0745 AC IV 10/09 0744 Sodium Chloride 1,000 ML Q13H 10/01 1130 DC 10/01 IV 1426 Review of Systems Review of Systems: Eyes no blurred or double vision Ears no deafness or ringing Nose and throat no recurrent sinusitis Lungs per history of present illness Heart per history of present illness Abdomen no nausea vomiting she denied dysuria only urinary incontinence Musculoskeletal occasional muscle and joint pains Psych no anxiety or depression Neuro without recurrent headache or seizures Endocrine no heat or cold intolerance Past History Travel History Traveled to [place] past 21 day No Medical History Blood Transfusion Hx: No Neurological: NONE EENT: RIGHT EAR [place] Cardiovascular: AFIB, HTN, CHOL Respiratory: NONE Gastrointestinal: irritable bowel syndrome Hepatic: NONE Renal: NONE Musculoskeletal: psoariatic arthritis, DISSOLVED THORACIC DISKS RIGHT HIP FX Psychiatric: NONE Endocrine: diabetes, HYPOTHYROIDISM Blood Disorders: NONE Cancer(s): R HIP/BONE MYELOMA Surgical History Surgical History: none Family History Relations & Conditions If Any: BROTHER (melanoma with possible bone mets). FATHER (colon cancer). Psychosocial History Where Do You Live? Home Who Do You Live With? nephew Services at Home: None Smoking Status: Former Smoker ETOH Use: occasional use Illicit Drug Use: denies illicit drug use Functional Ability ADLs Independent: dressing, eating, toileting, bathing. Ambulation: cane Exam & Diagnostic Data Vital Signs and I&O Vital Signs Date Time Temp Pulse Resp B/P B/P Pulse O2 O2 Flow FiO2 Mean Ox Delivery Rate 10/02 0633 98.8 78 12 142/66 97 Room Air 10/01 2246 98.8 74 20 140/84 97 10/01 1920 98.4 80 18 132/78 98 Room Air 10/01 1600 98 Room Air 10/01 1600 97.9 74 18 104/46 98 Room Air 10/01 1400 97 Room Air 10/01 1400 98.4 78 16 132/66 97 Room Air Intake & Output 10/02 1600 10/02 0800 10/02 0000 10/01 1600 10/01 0800 10/01 0000 Intake Total 484 57 1380 800 Output Total 600 500 350 Balance 100 30 900 450 Intake, IV 220 800 800 Intake, Oral 480 30 600 Number 1 Bowel Movements Output, Urine 600 500 350 Physical Exam: Patient is a well-developed well-nourished female appearing in no acute distress HEENT is unremarkable Neck is supple there is no JVD Lungs are clear Heart regular rhythm S1 and S2 are normal no murmur gallops or rubs 1/6 systolic ejection murmur at right upper sternal border Abdomen bowel sounds positive Extremities without edema Labs/Noam Results: Laboratory Tests 10/02 10/02 10/02 0745 0410 0410 Chemistry Sodium (137 - 145 mmol/L) 149 H Potassium (3.5 - 5.1 mmol/L) 4.2 Chloride (98 - 107 mmol/L) 110 H Carbon Dioxide (22 - 30 mmol/L) 24 Anion Gap (5 - 16) 15 BUN (7 - 17 mg/dL) 27 H Creatinine (0.5 - 1.0 mg/dL) 1.6 H Estimated GFR (>60 ml/min) 31 L BUN/Creatinine Ratio (7 - 25 %) 16.9 Phosphorus (2.5 - 4.5 mg/dL) 2.7 Magnesium (1.6 - 2.3 mg/dL) 2.0 Troponin I (< 0.11 ng/ml) 0.11 *H 0.12 *H Hematology CBC w Diff NO MAN DIFF REQ WBC (4.8 - 10.8 /CUMM) 10.2 RBC (4.20 - 5.40 /CUMM) 3.50 L Hgb (12.0 - 16.0 G/DL) 10.5 L Hct (37 - 47 %) 32.5 L MCV (81.0 - 99.0 FL) 92.8 MCH (27.0 - 31.0 PG) 30.1 MCHC (33.0 - 37.0 G/DL) 32.4 L RDW (11.5 - 14.5 %) 17.6 H Plt Count (130 - 400 /CUMM) 140 MPV (7.4 - 10.4 FL) 9.3 Gran % (42.2 - 75.2 %) 79.5 H Lymphocytes % (20.5 - 51.1 %) 15.3 L Monocytes % (1.7 - 9.3 %) 3.8 Eosinophils % (0 - 5 %) 1.1 Basophils % (0.0 - 2.0 %) 0.3 Absolute Granulocytes (1.4 - 6.5 /CUMM) 8.1 H Absolute Lymphocytes (1.2 - 3.4 /CUMM) 1.6 Absolute Monocytes (0.10 - 0.60 /CUMM) 0.4 Absolute Eosinophils (0.0 - 0.7 /CUMM) 0.1 Absolute Basophils (0.0 - 0.2 /CUMM) 0 10/01 10/01 10/01 1800 1314 0550 Chemistry Sodium (137 - 145 mmol/L) 145 Potassium (3.5 - 5.1 mmol/L) 4.6 Chloride (98 - 107 mmol/L) 107 Carbon Dioxide (22 - 30 mmol/L) 24 Anion Gap (5 - 16) 14 BUN (7 - 17 mg/dL) 25 H Creatinine (0.5 - 1.0 mg/dL) 1.6 H Estimated GFR (>60 ml/min) 31 L BUN/Creatinine Ratio (7 - 25 %) 15.6 Phosphorus (2.5 - 4.5 mg/dL) 3.5 Magnesium (1.6 - 2.3 mg/dL) 1.3 L Troponin I (< 0.11 ng/ml) Cancelled 0.14 *H 0.19 *H Hematology CBC w Diff MAN DIFF ORDERED WBC (4.8 - 10.8 /CUMM) 13.1 H RBC (4.20 - 5.40 /CUMM) 3.19 L Hgb (12.0 - 16.0 G/DL) 9.6 L Hct (37 - 47 %) 29.7 L MCV (81.0 - 99.0 FL) 93.3 MCH (27.0 - 31.0 PG) 30.3 MCHC (33.0 - 37.0 G/DL) 32.5 L RDW (11.5 - 14.5 %) 17.7 H Plt Count (130 - 400 /CUMM) 120 L MPV (7.4 - 10.4 FL) 9.5 Gran % (42.2 - 75.2 %) 89.5 H Lymphocytes % (20.5 - 51.1 %) 5.9 L Monocytes % (1.7 - 9.3 %) 4.3 Eosinophils % (0 - 5 %) 0.1 Basophils % (0.0 - 2.0 %) 0.2 Absolute Granulocytes (1.4 - 6.5 /CUMM) 11.7 H Segmented Neutrophils (42.2 - 75.2 %) 74 Band Neutrophils (0.0 - 5.0 %) 19 H Absolute Lymphocytes (1.2 - 3.4 /CUMM) 0.8 L Lymphocytes (20.5 - 51.1 %) 4 L Monocytes (1.7 - 9.3 %) 3 Absolute Monocytes (0.10 - 0.60 /CUMM) 0.6 Absolute Eosinophils (0.0 - 0.7 /CUMM) 0 Absolute Basophils (0.0 - 0.2 /CUMM) 0 Anisocytosis 1+ Diagnostic Data EKG Results EKG sinus rhythm incomplete right bundle branch block left anterior hemiblock CXR Results IMPRESSION: Low lung volumes. No acute pulmonary finding. Other Results Echocardiogram CONCLUSIONS Normal left ventricular systolic function with mild LVH. Mild Aortic stenosis. Mild Pulmonary hypertension. Assessment/Plan Assessment/Plan 1. Fever, chills, and weakness secondary to urosepsis 2. Mild aortic stenosis with normal ejection fraction by echocardiogram 3. Hypertension by history 4. Elevated troponin secondary to type II myocardial infarction. 5. Atypical chest pain does not appear to be cardiac most likely either GI or musculoskeletal in etiology 6. Diabetes 7. 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 There is documentation of history of atrial fibrillation but on reviewing her records I see no evidence for that and the patient does not recall any history of an arrhythmia. Recommendations 1. Would continue current medications including antibiotics 2. Continue monitor on telemetry 3. Since her blood pressure is now stabilized I would resume her outpatient metoprolol 4. Given her elevated troponins and atypical chest pain I feel that she should have an outpatient ischemic workup Thank you for allowing [facility] to participate in the care of your patient. Consult Acknowledgment - Thank you for your consult request.
[2017-10-02 14:00] VITALS: BP 160/80
[2017-10-02 22:19] VITALS: BP 130/70
[2017-10-03 06:00] VITALS: BP 132/72
--- NOTE | 2017-10-03 07:11 | PN- Housestaff ---
Nestor ARAUJO,Robby 10/03/17 0711: Subjective Follow-up For: Sepsis of urologic origin, chest pain evaluation, weakness Complaints: no complaints Tele-Events Since Last Visit: sinus rhythm, no events noted. Subjective: I saw the patient and examined her today. She was resting comfortably in her recliner this morning and did not have any complaints. She walked with PT to try for stairs later (PT eval awaiting). VSS stable and no other complaints. Review of Systems Constitutional: Reports: no symptoms. Objective Last 24 Hrs of Vital Signs/I&O Vital Signs Date Time Temp Pulse Resp B/P B/P Pulse O2 O2 Flow FiO2 Mean Ox Delivery Rate 10/03 1502 97.3 69 22 120/68 96 10/03 0921 140/70 10/03 0600 97.6 66 24 132/72 98 Room Air Intake & Output 10/03 1600 10/03 0800 10/03 0000 Intake Total 400 240 480 Output Total 600 600 600 Balance -200 -360 -120 Intake, Oral 400 240 480 Number 0 Bowel Movements Output, Urine 600 600 600 Physical Exam General Appearance: Alert, Oriented X3, Cooperative, No Acute Distress, obese Other Physical Findings: Head: Normocephalic, atraumatic Throat/mouth: Moist mucosa Neck: Supple, full range of motion Heart: Regular rate, regular rhythm Lung: Normal breath sound bilaterally [Added sound not heard] Extremities: Normal knee exam bilaterally, no pedal edema noted, Distal neurovascular intact Neurologic: Alert, oriented x3, Cranial exam grossly intact, Speech is clear and coherent Skin: Warm and dry Psychiatric: Calm, cooperative, coherant Current Medications: Current Medications Sig/Kenny Start time Last Medication Dose Route Stop Time Status Admin Acetaminophen 650 MG Q6P PRN 10/01 1730 DCD PO Aspirin 81 MG DAILY 10/01 1000 DCD 10/03 PO 0921 Atorvastatin Calcium 20 MG 1700 09/30 1700 DCD 10/02 PO 1654 Ceftriaxone Sodium 1,000 MG Q24H 10/01 0600 DCD 10/03 IV 0535 Heparin Sodium 5,000 UNIT Q8 09/30 1400 DCD 10/03 (Porcine) SC 1225 Insulin Aspart 0 TIDAC 09/30 1700 DCD 10/03 SC 1225 Levothyroxine Sodium 0.088 MG 0600 10/03 0600 DCD 10/03 PO 0525 Lidocaine 1 PAT DAILY 10/02 1000 DCD 10/03 EXT 0920 Metoprolol Succinate 100 MG DAILY 10/02 1259 DCD 10/03 PO 0921 Nystatin 1 ODALIS BID 10/01 1158 DCD 10/03 TOP 0921 Promethazine HCl 25 MG Q6 PRN 10/02 0745 DCD IV 10/09 0744 Last 24 Hrs of Lab/Noam Results Last 24 Hrs of Labs/Mics: Laboratory Tests 10/03/17 1030: Anion Gap 12, Estimated GFR 44 L, BUN/Creatinine Ratio 20.8 Assessment/Plan Assessment: 77-year-old female with past medical history of atrial fibrillation, hypertension, hypercholesterolemia, irritable bowel syndrome, psoriatic arthritis on methotrexate, diabetes mellitus (aoz-agylysv-[id number] diabetes mellitus), hypothyroidism, myeloma came in with chief complaint of weakness, nausea, vomiting for 5 days with urinary frequency and RUQ pain. She was found to have sepsis of urologic origin and was initially admitted in the general medical floor. After complaining of chest pains and increased troponin levels, she was transferred initially to ICU as tele hold and later to the telemetry. She is currently being managed in telemetry floor for the following issues: #Sepsis of urologic origin Patient initially presented with 102F fever, tachycardia, urinary symptoms, and a CAT scan showing bilateral perinephric stranding, and UA showing pyuria. Urine culture started growing gram-negative rods and she was started on IV ceftriaxone, currently continued. Culture results: Escherichia coli, sensitive to cefazolin, Augmentin, Cipro, gentamicin, nitrofurantoin. We continued IV antibiotics until her discharge today, and switched to by mouth antibiotics to be taken at home for next ten days (total abx for 14 days) for upper UTI/ pyelonephritis. #Chest pain evaluation Patient described severe chest pain earlier this morning 8/10 centrally located radiating to the back between her shoulder blades, which she has been having since her admission, a repeat troponin EKG was slightly elevated. This probably represents type II [place], but given her elevated troponin and chest pain, she needs an outpatient ischemic workup according to cardiology. Cardiology recs appreciated. We resumed her home blood pressure medications. Of note, Lidoderm additionally seemed to help her pain. She has been discharged with additional Lidoderm patch at home. Of note, she seems to have had history of atrial fibrillation and had denied anti-coagulation according to the medical records dated 10/01/2017. #Nausea Since her QTC was prolonged, Zofran was discontinued, will provide any other antiemetics when necessary. #Diabetes mellitus Continue on NovoLog sliding scale, diabetic diet, Accu-Cheks 3 times a day/ before meals and at bedtime. On discharge, her home meds were continued. #Will continue her home medications for hypothyroidism, hypertension. Of note, MTX was held since admission. Will continue after her discharge. #We'll hold her atorvastatin has C does not tolerate it and we do not carry any other statin in-house. #Discharge disposition: Home with PT service. Spoke with her nephew Thomas, who did raise concern initially that "her home is a mess" and that she probably will need home health care social worker to help her out. After a brief conversation over phone, he agreed to pick her up, and also try to get home health care social worker from dept of social works for assessment of her abilities and limitations, and if she could benfit by any aide's help. Patient was also convinced to get PT at home and agreed to the plan of trying to get more PT at home. #Diet: Diabetic diet, consistent carbohydrate 2. #DVT prophylaxis with ALPS #Code status: Full code Problem List: 1. Sepsis secondary to UTI 2. Chest pain Pain Ratin Pain Location: upper back, better today Pain Goal: Pain 4 or less Pain Plan: prn, lidoderm additionally seemed to help Tomorrow's Labs & Rationales: - Vangie ARAUJO,Michael 10/03/17 1141: Attending MD Review Statement Attending Statement Attending MD Statement: examined this patient, discuss w/resident/PA/BRUSH MAKER, agreed w/resident/PA/BRUSH MAKER, reviewed EMR data (avail), discussed with nursing, discussed with case mgmt, amended to note Attending Assessment/Plan: Patient seen and examined. Resting comfortably and was in any acute distress. No issues overnight. No events on telemetry monitoring. She denies chest pain or palpitations. Denies shortness of breath. She denies any further nausea vomiting. Denies abdominal pain or dysuria. She is afebrile and hemodynamically stable. On examination she is not in any distress. Heart sounds are regular with no audible murmur. Lungs are clear bilaterally. Abdomen soft, nontender. She has no peripheral edema. Urine cultures growing E. coli sensitive to Augmentin. She will be transitioned to Augmentin to complete a total of 14 days of antibiotic therapy. Cardiology follow-up appreciated. She will follow up with the cardiology service as an outpatient for further ischemic workup. This has been explained to the patient and she verbalized understanding. She was evaluated by the physical therapy service and has been cleared for discharge home. Patient medically stable to be discharged home today.
[2017-10-03] MEDS ORDERED: LIDODERM1 EACH EXT ×2 (07:15→22:50)
--- NOTE | 2017-10-03 07:20 | Patient Discharge Instructions ---
Discharge Instructions General Discharge Information You were seen/treated for: Sepsis, secondary to UTI; Chest pain (Type II ID) Special Instructions: Please visit your PCP and instructor knitting within 1-2 weeks of discharge. Please return to emergency if symptoms worsen. Diet Continue normal diet: No Recommended Diet: Diabetic Activity Full Activity/No Limits: No Activity Self Limited: Yes Acute Coronary Syndrome Inclusion Criteria At DC or during hospital stay patient has or had the following: ACS DIAGNOSIS No Discharge Core Measures Meds if any: Prescribed or Continued at Discharge Meds if any: NOT Prescribed or Continued at Discharge Congestive Heart Failure Inclusion Criteria At DC or during hospital stay patient has or had the following: CHF DIAGNOSIS No Discharge Core Measures Meds if any: Prescribed or Continued at Discharge Meds if any: NOT Prescribed or Continued at Discharge Cerebrovascular accident Inclusion Criteria At DC or during hospital stay patient has or had the following: CVA/TIA Diagnosis No Discharge Core Measures Meds if any: Prescribed or Continued at Discharge Meds if any: NOT Prescribed or Continued at Discharge Venous thromboembolism Inclusion Criteria VTE Diagnosis No VTE Type NONE VTE Confirmed by (Test) NONE Discharge Core Measures - Per Current guidelines, there needs to be overlap - treatment for the first 5 days of Warfarin therapy. - If discharged on Warfarin prior to 5 days of - overlap therapy, the patient will need to be - assessed for post discharge needs including - *Post discharge parental anticoagulation - *Warfarin and/or parental anticoagulation education - *Follow up date to check INR post discharge At least 5 days overlap therapy as Inpatient No Meds if any: Prescribed or Continued at Discharge Note: Overlap Therapy is Warfarin and Anticoagulant Meds if any: NOT Prescribed or Continued at Discharge
--- NOTE | 2017-10-03 11:47 | PN- Cardiology ---
Subjective Subjective: Feels well with no chest pain or dyspnea at present. Objective Vital Signs and I&Os Vital Signs Date Time Temp Pulse Resp B/P B/P Pulse O2 O2 Flow FiO2 Mean Ox Delivery Rate 10/03 0921 140/70 10/03 0600 97.6 66 24 132/72 98 Room Air 10/02 2219 99.3 73 20 130/70 97 Room Air 10/02 1655 152/74 10/02 1400 98.3 106 20 160/80 98 Intake & Output 10/03 1600 10/03 0800 10/03 0000 10/02 1600 10/02 0800 10/02 0000 Intake Total 240 480 400 700 30 Output Total 600 600 650 600 Balance -360 -120 -250 100 30 Intake, IV 220 Intake, Oral 240 480 400 480 30 Number 0 1 Bowel Movements Output, Urine 600 600 650 600 Physical Exam: General: no apparent distress. Alert. Eyes: No obvious scleral icterus. HEENT: No jugular venous distention or abnormal jugular venous pulsations. Cardiovascular: Normal intensity S1/S2. Regular. Respiratory: No rales or rhonchi Abdomen: Soft, nontender with no guarding or rebound tenderness. Musculoskeletal: No clubbing or cyanosis noted Skin: No obvious rashes or ulcerations. Neurologic: No gross focal deficits noted. Current Medications: Current Medications Sig/Kenny Start time Last Medication Dose Route Stop Time Status Admin Acetaminophen 650 MG Q6P PRN 10/01 1730 AC PO Aspirin 81 MG DAILY 10/01 1000 AC 10/03 PO 0921 Atorvastatin Calcium 20 MG 1700 09/30 1700 AC 10/02 PO 1654 Ceftriaxone Sodium 1,000 MG Q24H 10/01 0600 AC 10/03 IV 0535 Heparin Sodium 5,000 UNIT Q8 09/30 1400 AC 10/03 (Porcine) SC 0535 Insulin Aspart 0 TIDAC 09/30 1700 AC 10/02 SC 1655 Levothyroxine Sodium 0.088 MG 0600 10/03 0600 AC 10/03 PO 0525 Lidocaine 1 PAT DAILY 10/02 1000 AC 10/03 EXT 0920 Metoprolol Succinate 100 MG DAILY 10/02 1259 AC 10/03 PO 0921 Nystatin 1 ODALIS BID 10/01 1158 AC 10/03 TOP 0921 Promethazine HCl 25 MG Q6 PRN 10/02 0745 AC IV 10/09 0744 Results Last 48 Hrs of Labs/Mics: Laboratory Tests 10/03/17 1030: Anion Gap 12, Estimated GFR 44 L, BUN/Creatinine Ratio 20.8 10/02/17 0745: Troponin I 0.11 *H 10/02/17 0410: Phosphorus 2.7, Magnesium 2.0, Troponin I 0.12 *H 10/02/17 0410: Anion Gap 15, Estimated GFR 31 L, BUN/Creatinine Ratio 16.9, CBC w Diff NO MAN DIFF REQ, RBC 3.50 L, MCV 92.8, MCH 30.1, MCHC 32.4 L, RDW 17.6 H, MPV 9.3, Gran % 79.5 H, Lymphocytes % 15.3 L, Monocytes % 3.8, Eosinophils % 1.1, Basophils % 0.3, Absolute Granulocytes 8.1 H, Absolute Lymphocytes 1.6, Absolute Monocytes 0.4, Absolute Eosinophils 0.1, Absolute Basophils 0 10/01/17 1800: Troponin I Cancelled 10/01/17 1314: Troponin I 0.14 *H Recent Imaging Studies: Tracings were personally reviewed and shows sinus rhythm with APCs Assessment/Plan Assessment/Plan 1. Fever, chills, and weakness secondary to urosepsis 2. Mild aortic stenosis with normal ejection fraction by echocardiogram 3. Hypertension by history 4. Elevated troponin secondary to type II myocardial infarction 5. Atypical chest pain does not appear to be cardiac most likely either GI or musculoskeletal in etiology 6. Diabetes 7. 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 There is documentation of history of atrial fibrillation but on reviewing her records I see no evidence for that and the patient does not recall any history of an arrhythmia. Patient feels well and remains hemodynamically stable. Telemetry shows sinus rhythm with APCs but no evidence of atrial fibrillation. Continue current cardiac regimen. She may be a candidate for outpatient noninvasive ischemic testing in the near future. She should follow-up in our office within one week of discharge. Please call with any additional questions or concerns. Raul Jameson MD [facility] Continue telemetry? No
[2017-10-03] MEDS ORDERED: AUGMENTIN 500-1 EACH PO (12:03)
--- NOTE | 2017-10-03 12:04 | Discharge Summary ---
Visit Information Visit Dates Admission Date: 09/30/17 Discharge Date: 10/03/17 Hospital Course Course Attending Physician: Michael Vences MD Primary Care Physician: Roberth Bettencourt MD Hospital Course: 77-year-old female with past medical history of atrial fibrillation, hypertension, hypercholesterolemia, irritable bowel syndrome, psoriatic arthritis on methotrexate, diabetes mellitus (hxb-bvvhtxa-wqcoocude diabetes mellitus), hypothyroidism, myeloma came in with chief complaints of weakness, nausea, vomiting for 5 days with urinary frequency and RUQ pain. She was found to have sepsis of urologic origin and was initially admitted in the general medical floor. After complaining of chest pains and increased troponin levels, she was transferred initially to ICU as tele hold and later to the telemetry. She was managed at [facility] for the following issues: #Sepsis of urologic origin Patient initially presented with 102F fever, tachycardia, urinary symptoms, and a CAT scan showing bilateral perinephric stranding, and UA showing pyuria. Urine culture started growing gram-negative rods and she was started on IV ceftriaxone. Culture results: Escherichia coli, sensitive to cefazolin, Augmentin, Cipro, gentamicin, nitrofurantoin. We continued IV antibiotics until her discharge day, and switched to by mouth antibiotics to be taken at home for next ten days (total abx for 14 days) for upper UTI/pyelonephritis. #Chest pain evaluation Patient described severe chest pain on the morning of Oct 01, 2017 which was 8/ 10 in severity, centrally located radiating to the back between her shoulder blades, which she has been having since her admission, a repeat troponin EKG was slightly elevated. This probably represents type II ME, but given her elevated troponin and chest pain, she needs an outpatient ischemic workup according to cardiology. Cardiology recs appreciated. We resumed her home blood pressure medications. Of note, Lidoderm additionally seemed to help her pain. She has been discharged with additional Lidoderm patch at home. Of note, she seems to have had history of atrial fibrillation and had denied anti-coagulation according to the medical records dated 10/01/2017. #Nausea Since her QTc interval was prolonged, Zofran was discontinued, will provide any other antiemetics when necessary. #Diabetes mellitus Continue on NovoLog sliding scale, diabetic diet, Accu-Cheks 3 times a day/ before meals and at bedtime. On discharge, her home meds were continued. #Will continue her home medications for hypothyroidism, hypertension. Of note, MTX was held since admission. Will continue after her discharge. #We'll hold her atorvastatin has C does not tolerate it and we do not carry any other statin in-house. #Discharge disposition: Home with PT service. On the day of discharge, I spoke with her nephew Thomas, who did raise concern initially that "her home is a mess " and that she probably will need social sciences research scientist to help her out. After a brief conversation over phone, he agreed to pick her up, and also try to get social sciences research scientist from dept of social works for assessment of her abilities and limitations , and if she could benfit by any aide's help. Patient was also convinced to get PT at home and agreed to the plan of trying to get more PT at home. #Diet: Diabetic diet, consistent carbohydrate 2. #DVT prophylaxis with ALPS #Code status: Full code Allergies: Coded Allergies: codeine (HIVES, RASH 02/21/16) Significant Procedures: Echocardiogram done on 10/01/2017: FINDINGS Left Ventricle Normal size left ventricle. Left ventricular wall thickness mildly increased. Normal left ventricular ejection fraction estimated at 60-65%. Right Ventricle Normal right ventricular size and function. Right Atrium Normal right atrial size. Left Atrium Left atrial size at the upper limits of normal. Mitral Valve Mild mitral annular calcification. Trace to mild mitral regurgitation. Aortic Valve Diffuse thickening of the aortic valve cusps with reduced excursion. Mild aortic stenosis. Tricuspid Valve Tricuspid valve is normal in structure and function. Mild tricuspid regurgitation. Right ventricular systolic pressure estimated to be elevated at 40 mmHg. Pulmonic Valve Pulmonic valve not well visualized, grossly normal. Pericardium Minimal pericardial effusion (normal variant). Great Vessels Normal size aortic root and proximal ascending aorta. CONCLUSIONS Normal left ventricular systolic function with mild LVH. Mild Aortic stenosis. Mild Pulmonary hypertension. Pierre Damon M.D. (Electronically Signed) Final Date: 01 October 2017 19:48 MEASUREMENTS (Male / Female) Normal Values 2D ECHO LV Diastolic Diameter PLAX 3.7 cm 4.2 - 5.9 / 3.9 - 5.3 cm LV Systolic Diameter PLAX 2.2 cm 2.1 - 4.0 cm LV Fractional Shortening PLAX 40.5 % 25 - 46 % LV Ejection Fraction 2D Teich 72.1 % IVS Diastolic Thickness 1.2 cm LVPW Diastolic Thickness 1.2 cm LV Relative Wall Thickness 0.6 RV Internal Dim ED PLAX 2.7 cm 1.9 - 3.8 cm LVOT Diameter 1.9 cm Aortic Root Diameter 2.4 cm LA Systolic Diameter LX 3.5 cm 3.0 - 4.0 / 2.7 - 3.8 cm LA Volume 43.0 cm 18 - 58 / 22 - 52 cm Ascending Aorta Diameter 3.1 cm DOPPLER AV Peak Velocity 232.0 cm/s AV Peak Gradient 21.5 mmHg AV Mean Velocity 179.0 cm/s AV Mean Gradient 14.0 mmHg AV Velocity Time Integral 52.4 cm LVOT Peak Velocity 119.0 cm/s LVOT Peak Gradient 5.7 mmHg LVOT Mean Velocity 89.9 cm/s LVOT Mean Gradient 4.0 mmHg LVOT Velocity Time Integral 29.6 cm LVOT Stroke Volume 83.9 cm AV Area Cont Eq vti 1.6 cm AV Area Cont Eq pk 1.5 cm MV Peak Velocity 118.0 cm/s MV Peak Gradient 5.6 mmHg MV Mean Velocity 73.1 cm/s MV Mean Gradient 3.0 mmHg Mitral E Point Velocity 89.5 cm/s Mitral A Point Velocity 99.3 cm/s Mitral E to A Ratio 0.9 MV PHT Velocity 122.0 cm/s MV Deceleration [place] 461.0 cm/s MV Pressure Half Time 79.4 ms MV Area PHT 2.8 cm MV Deceleration Time 320.0 ms TR Peak Velocity 281.0 cm/s TR Peak Gradient 31.6 mmHg Right Atrial Pressure 5.0 mmHg Pulmonary Artery Systolic Pressu 36.6 mmHg Right Ventricular Systolic Press 36.6 mmHg PV Peak Velocity 131.0 cm/s PV Peak Gradient 6.9 mmHg PV Mean Velocity 77.0 cm/s PV Mean Gradient 3.0 mmHg PV Velocity Time Integral 27.0 cm LV E' Lateral Velocity 7.6 cm/s Mitral E to LV E' Lateral Ratio 11.8 LV E' Septal Velocity 5.5 cm/s Mitral E to LV E' Septal Ratio 16.4 DICTATED BY: Richy ARAUJO,Pierre Ng DATE/TIME DICTATED:10/01/171947 [employer] PROFESSIONAL:MICHEL DATE/TIME TRANSCRIBED:10/01/171947 CAT scan of abdomen done on 09/30/2017: FINDINGS: A portion of the right abdomen is not included on this study due to the patient's size and [id number] of the examination. LUNG BASES: There is a 0.4 cm right middle lobe pulmonary nodule, series 2 image 6. The visualized cardiac structures are unremarkable. LIVER, GALLBLADDER, AND BILIARY TREE: The visualized liver is normal in size, shape, and attenuation. No focal hepatic lesion or biliary ductal dilatation is present. The gallbladder is unremarkable with no evidence of radiopaque gallstones, gallbladder wall thickening, or obvious pericholecystic inflammatory changes. PANCREAS: Unremarkable. SPLEEN: Unremarkable. ADRENAL GLANDS: Unremarkable. KIDNEYS AND URETERS: The kidneys are normal in size, shape, and attenuation. No hydronephrosis, hydroureter, or calculi seen. Mild symmetric perinephric stranding. BLADDER: Unremarkable. GASTROINTESTINAL TRACT: The stomach is decompressed, grossly unremarkable. The small bowel is normal in caliber without obstruction. Normal appendix. No colonic wall thickening or inflammatory changes are seen. Mild colonic stool burden. No free air or free fluid. ABDOMINAL WALL: No significant hernia is appreciated. The right abdominal wall is not fully included on this study. LYMPH NODES: Normal. VASCULAR: Normal caliber aorta with mild atherosclerotic calcifications. PELVIC VISCERA: The uterus and adnexa are unremarkable. OSSEOUS STRUCTURES: No acute or suspicious osseous abnormality. Multilevel degenerative changes of the spine. These are most significant at the L3-L4 level with disc space narrowing, vacuum disc phenomenon, and prominent endplate sclerosis with osteophyte formation. Hardware seen in the proximal right femur. Sclerosis noted at the superior portion of the right femoral head is nonspecific but could be associated with avascular necrosis. IMPRESSION: 1. No acute finding of the abdomen or pelvis. Unremarkable appearance of the gallbladder. Normal appendix. 2. 0.4 cm right middle lobe pulmonary nodule. If this is a high-risk patient, 12 month follow-up chest CT could be considered. DICTATED BY: Constantine ARAUJO,Naga DATE/TIME DICTATED:09/30/17303 [employer] PROFESSIONAL:MICHEL DATE/TIME TRANSCRIBED:09/30/17303 Disposition Summary Disposition Principal Diagnosis: Sepsis, secondary to UTI; Chest pain (Type II ME) Additional Diagnosis: atrial fibrillation, hypertension, hypercholesterolemia, irritable bowel syndrome, psoriatic arthritis on methotrexate, diabetes mellitus (non-insulin- dependent diabetes mellitus), hypothyroidism, myeloma Discharge Disposition: home health services Discharge Instructions General Discharge Information Code Status: Full Code Patient's Diet: Diabetic diet Patient's Activity: As tolerated Follow-Up Instructions/Appts: Please visit your PCP and in flight refueling system repairer within 1-2 weeks of discharge. Please return to emergency if symptoms worsen. Medications at Discharge Discharge Medications: Continue taking these medications: Methotrexate (Methotrexate) 2.5 MG TABLET 6 Tablet ORAL Once a Week Qty = 72 Metformin HCl (Metformin HCl) 500 MG TABLET 1 Tablet ORAL TWICE DAILY Qty = 120 Instructions: Reason to Stop at ADM: ON NPO ISS Levothyroxine Sodium (Levothyroxine Sodium) 88 MCG TABLET 1 Tablet ORAL DAILY Qty = 30 Comments: Last Taken:10/03/17 Time:0700 Metoprolol Succinate (Metoprolol Succinate) 100 MG TAB.ER.24H 1 Tablet ORAL DAILY Qty = 30 Instructions: last taken on 02/20/16 Comments: Last Taken:10/03/17 Time:1000 Lisinopril (Lisinopril) 20 MG TABLET 1 Tablet ORAL DAILY Qty = 90 Glimepiride (Glimepiride) 4 MG TABLET 1 Tablet ORAL DAILY Qty = 180 Instructions: Reason to Stop at ADM: ON NPO ISS [SIMVASTATIN TAB 40M] 40 Milligram ORAL DAILY Qty = 90 Comments: Last Taken:10/02/17 LIPITOR Time:1700 Aspirin (Aspirin*) 81 MG TAB.CHEW 1 Tablet ORAL DAILY Instructions: Reason to Stop at ADM: HOLDING BECAUSE SHE WILL GO FOR SURGERY Comments: Last Taken:10/03/17 Time:1000 Polyethylene Glycol 3350 (Miralax) 119 GM POWDER 17 Gram ORAL DAILY Days = 15 Sennosides/Docusate Sodium (Senna Plus Tablet) 1 EACH TABLET 1 Tablet ORAL DAILY as needed for CONSTIPATION Qty = 20 Start taking the following new medications: Lidocaine (Lidoderm) 5 % ADH..PATCH 1 Patch ON SKIN DAILY as needed for BACK PAIN Qty = 30 Refills = 1 Instructions: . Comments: Last Taken:10/03/17 Time:1000 Augmentin (Augmentin 500-125 Tablet) 500 MG-125 MG TABLET 1 Tablet ORAL TWICE DAILY Qty = 20 No Refills Copies To: Tevin ARAUJO,Raman Iverson; Quinten ARAUJO,Dionisio Card; Sg ARAUJO,Roberth Card Attending MD Review Statement Documenting Attending: Michael Vences MD Other Findings: Discharged in stable condition
[2017-10-03 15:02] VITALS: BP 120/68
== END 2017-10-03 18:50 | disposition home health service (06) | DRG 871 ==
LOC: ERH 00:25 → ERHI 08:35 → 1NO 08:35 → 2NB 08:35 → ERHI 10-01 05:58 → EDBEDREQ 10-01 07:28 → ENRESERV 10-01 07:57 → ENTRNSPT 10-01 08:49 → EDTRNSPT 10-01 09:13 → EDTRNSPTSTS 10-01 09:13 → EDTRNSPT 10-01 09:22 → 2NB 10-01 09:26 → CMPTRNSPT 10-01 09:40 → CRI 10-01 13:44 → 1NO 10-01 19:16 → ENPENDDIS 10-03 12:03 → ENTRNSPT 10-03 18:26 → EDTRNSPTSTS 10-03 18:42 → 1NO 10-03 18:50 → CMPTRNSPT 10-03 18:58
PROVIDERS: Emergency Medicine; Internal Medicine; Student in an Organized Health Care Education/Training Program
DX: A41.9 Sepsis, unspecified organism (principal); I21.A1 Myocardial infarction type 2; N17.9 Acute kidney failure, unspecified; N39.0 Urinary tract infection, site not specified; C90.00 Multiple myeloma not having achieved remission; I48.2 Chronic atrial fibrillation; E11.9 Type 2 diabetes mellitus without complications; Z79.84 Long term (current) use of oral hypoglycemic drugs; L40.50 Arthropathic psoriasis, unspecified; I10 Essential (primary) hypertension; E78.00 Pure hypercholesterolemia, unspecified; K58.9 Irritable bowel syndrome, unspecified; I35.0 Nonrheumatic aortic (valve) stenosis; I45.10 Unspecified right bundle-branch block
CPT/HCPCS: 1NSP; ERO; 36415; 71045; 74176; 81001; 82436; 87040; 87086; 87804; 87804-59; 93005; 93010; 93306; 96361; 96374; 96375; 96376; 97110-GO; 97116-GO; 97161-GP; 97164-GP; 97530-GO; 99291; J0131; J0696; J1644; J2405; J2550; J3490; J7508